=== PATIENT | female | born 1940 | race Caucasian/White ===

== ENCOUNTER 2017-02-25 02:19 | Observation (INO) | payer MEDICARE, OTHER ==
[2017-02-25] VITALS (9 sets, daily range): BP systolic 158–209; BP diastolic 74–102; PULSE 61–85; RESP 16–20; TEMP 96.7–98.9; O2SAT 95–99
[~2017-02-25] VITALS: Ht 167.6 cm; Wt 65.3 kg
[~2017-02-25 02:19] MED LIST: AMLO10 PO; CELE200 PO; PARO10S PO; PROT40TA PO; RAMI10CA PO; TAB-TAB PO
[2017-02-25] MEDS ORDERED: SODIUM CHLORID 0.9% 500 ML INJ 500 ML IV ONE ×2 (03:00→03:45)
[2017-02-25 03:24] LABS: AUTOMATED NEUTROPHIL # 9.5 TH/MM3 (1.8-7.7); BASOPHIL % 0.3 % (0.0-2.0); EOSINOPHIL % 0.1 % (0.0-4.0); HEMATOCRIT 43.4 % (35.0-46.0); HEMO FLAGS DIFF FINAL; LYMPH % 10.9 % (9.0-44.0); LYMPHOCYTE # 1.3 TH/MM3 (1.0-4.8); MEAN CELL VOLUME 88.5 FL (80.0-100.0); MEAN CORPUSCULAR HEMOGLOBIN 30.4 PG (27.0-34.0); MEAN CORPUSCULAR HGB CONC 34.3 % (32.0-36.0); NEUT % 80.7 % (16.0-70.0); PLATELET COUNT 298 TH/MM3 (150-450); WHITE BLOOD COUNT 11.8 TH/MM3 (4.0-11.0)
[2017-02-25 03:35] LABS: APTT (PATIENT) 24.3 SEC (24.3-30.1)
[2017-02-25] MEDS ORDERED: ONDANSETRON HCL 4 MG/2 ML VIAL IV PUSH ONE (03:45)
[2017-02-25] MEDS ORDERED: MORPHINE SULFATE 4 MG/ML INJ IV PUSH ONE (03:45)
--- NOTE | 2017-02-25 03:48 | RADRPT ---
EXAM DATE/TIME: 02/25/2017 03:12 [facility] COMPARISON: No previous studies available for comparison. INDICATIONS : Cough. MEDICAL HISTORY : Hypertension. Cardiovascular disease. Carcinoma, breast. SURGICAL HISTORY : None. ENCOUNTER: Initial ACUITY: 1 day PAIN SCORE: 0/10 LOCATION: Bilateral chest FINDINGS: A single view of the chest demonstrates the lungs to be symmetrically aerated without evidence of mas s, infiltrate or effusion. The cardiomediastinal contours are unremarkable. Osseous structures are intact. CONCLUSION: 1. No acute cardiopulmonary disease. Germain Zelaya MD on February 25, 2017 at 3:47 Board Certified Radiologist. This report was verified electronically.
--- NOTE | 2017-02-25 03:55 | RADRPT ---
EXAM DATE/TIME: 02/25/2017 03:06 [facility] COMPARISON: No previous studies available for comparison. INDICATIONS : Hematuria. ORAL CONTRAST: No oral contrast ingested. RADIATION DOSE: 8.50 CTDIvol (mGy) MEDICAL HISTORY : Cardiovascular disease. Hypertension. Carcinoma, breast.GERD SURGICAL HISTORY : Cholecystectomy. Hysterectomy. ENCOUNTER: Initial ACUITY: 1 day PAIN SCALE: 7/10 LOCATION: medial abdomen TECHNIQUE: Volumetric scanning of the abdomen and pelvis was performed. Using automated exposure control and ad justment of the mA and/or kV according to patient size, radiation dose was kept as low as reasonably achievable to obtain optimal diagnostic quality images. FINDINGS: Examination of the lung bases demonstrates no abnormality. No pleural fluid is identified. No pulmona ry nodules are present. The liver and spleen are normal in size and no focal defects are identified. The gallbladder is absent. The pancreas demonstrates normal contour without evidence of mass or ducta l dilatation. The adrenal glands are unremarkable. The right kidney is unremarkable. There is a 2 cm solid mass in the left kidney. Malignancy is not excluded. MRI with contrast is recommended for furth er evaluation if clinically indicated. No abnormally enlarged lymph nodes are identified. Examination of the pelvis demonstrates no evidence of free fluid or pelvic mass. No abnormally enlarg ed inguinal or retroperitoneal lymph nodes are present. The bladder is unremarkable. There is diverti culosis without evidence of diverticulitis. CONCLUSION: 1. 2 cm solid left renal mass. Malignancy is not excluded. MRI with contrast is recommended for furth er evaluation if clinically indicated. 2. Diverticulosis without evidence of diverticulitis. Germain Zelaya MD on February 25, 2017 at 3:48 Board Certified Radiologist. This report was verified electronically.
[2017-02-25 03:57] LABS: ALT (GPT) 21 U/L (10-53); ANION GAP 8 MEQ/L (5-15); AST (GOT) 17 U/L (15-37); BICARBONATE 25.6 MEQ/L (21.0-32.0); BLOOD UREA NITROGEN 20 MG/DL (7-18); CHLORIDE 103 MEQ/L (98-107); GLOMERULAR FILTRATION RATE 44 ML/MIN (>89); MAGNESIUM 2.4 MG/DL (1.5-2.5); POTASSIUM 3.7 MEQ/L (3.5-5.1); SODIUM (NA) 137 MEQ/L (136-145)
[2017-02-25 04:00] LABS: ALKALINE PHOSPHATASE 88 U/L (45-117); TOTAL BILIRUBIN ADULT 1.3 MG/DL (0.2-1.0)
--- NOTE | 2017-02-25 04:57 | PD ---
HPI Chief Complaint: GI Complaint Time Seen by Provider: 02:57 Travel History International Travel<30 days: No Contact w/Intl Traveler<30days: No Traveled to known affect area: No History of Present Illness HPI The patient is a 76 year old female who presents to the [facility] emergency department with a history of after having lunch at 2 PM yesterday having onset of nausea and vomiting. She reports that she's had at least 10 episodes of vomiting. She reports that she then began to have abdominal cramping. She reports that she has a history of constipation and felt like she needed to move her bowels. She reports that she had hard stools initially 3 times. She reports that the moving her bowels cause rectal discomfort. She then began to have rectal bleeding, bloody stools 3. She reports that it appears to be approximately a quarter cup of blood each time. She reports having a history of hemorrhoids. She last had a colonoscopy approximately 8 years ago and this was reportedly unremarkable. She does report having a prior history of peptic ulcer disease that is remote. She denies having any black or tarry stools prior to this. She denies having any chest pain, chest pressure, or shortness of breath. She denies having any lightheaded sensation. She reports having generalized abdominal discomfort associated with this. On review of systems, the patient denies any recent fevers cough, congestion, neck pain, urinary symptoms, or neurologic symptoms. The patient does however report for the last 2-3 weeks she's had bilateral flank pain. The patient incidentally also reports having a cyst on one of her kidneys. [facility] Past Medical History Narrative Medical The patient's past medical history is significant for hypertension, breast carcinoma status post resection and radiation therapy, acid reflux, history of depression, history of peptic ulcer disease, history of arthritis Arthritis: Yes Asthma: No Depression: Yes Heart Rhythm Problems: No Cancer: Yes (BREAST) Cardiovascular Problems: Yes High Cholesterol: Yes Chest Pain: No Congestive Heart Failure: No COPD: No Cerebrovascular Accident: No Diabetes: No Diminished Hearing: No Gastrointestinal Disorders: Yes GERD: Yes Glaucoma: No Genitourinary: Yes Headaches: No Hepatitis: No Hiatal Hernia: Yes Hypertension: Yes Kidney Stones: No Musculoskeletal: Yes (PARTIAL KNEE REPLACE 07/2009) Neurologic: No Reproductive: No Respiratory: Yes Migraines: No Myocardial Infarction: No Radiation Therapy: Yes (1998, 2000) Renal Failure: No Seizures: No Sleep Apnea: No Thyroid Disease: No Ulcer: No Tetanus Vaccination: < 5 Years Influenza Vaccination: Yes ?: Not Menopausal: Yes Past Surgical History Narrative Surgical The patient's past surgical history is significant for a lumpectomy of the breast 3, history of a hysterectomy, cholecystectomy, history of colonoscopy, knee replacement. Abdominal Surgery: No Appendectomy: No Cardiac Surgery: No Cholecystectomy: Yes Ear Surgery: No Endocrine Surgery: No Eye Surgery: No Genitourinary Surgery: No Gynecologic Surgery: Yes Hysterectomy: Yes (partial) Oral Surgery: No Pacemaker: No Thoracic Surgery: No Other Surgery: Yes (breast lumpectomy x3) Social History Alcohol Use: No Tobacco Use: No Substance Use: No Allergies-Medications (Allergen,Severity, Reaction): Coded Allergies: No Known Allergies (Verified , 01/18/15) Reported Meds & Prescriptions Reported Meds & Active Scripts Active Reported Simvastatin 20 Mg Tab 20 Mg PO DAILY Losartan (Losartan Potassium) 50 Mg Tab 50 Mg PO BID Pantoprazole (Pantoprazole Sodium) 40 Mg Tab 40 Mg PO BID Paroxetine (Paroxetine HCl) 40 Mg Tab 40 Mg PO DAILY Amlodipine (Amlodipine Besylate) 10 Mg Tab 10 Mg PO DAILY Review of Systems Except as stated in HPI: all other systems reviewed are Neg General / Constitutional: No: Fever Eyes: No: Visual changes HENT: No: Headaches Cardiovascular: No: Chest Pain or Discomfort Respiratory: No: Shortness of Breath Gastrointestinal: Positive: Nausea, Vomiting, Abdominal Pain, Hematochezia, Constipation, Changes in Bowel Habits, No: Hematemesis, Indigestion, Dysphagia , Loss of Appetite Genitourinary: No: Dysuria Musculoskeletal: No: Pain Skin: No Rash Neurologic: No: Weakness Psychiatric: No: Depression Endocrine: No: Polydipsia Hematologic/Lymphatic: No: Easy Bruising Physical Exam Narrative General: The patient is a well-developed well-nourished female in no acute distress. Head and Neck exam: Head is normocephalic atraumatic. Eyes: EOMI, pupils are equal round and reactive to light. Nose: Midline septum with pink mucous membranes Mouth: Dentition unremarkable. Moist mucus membranes. Posterior oropharynx is not erythematous. No tonsillar hypertrophy. Uvula midline. Airway patent. Neck: No palpable lymphadenopathy. No nuchal rigidity. No thyromegaly. Cardiovascular: Regular rate and rhythm without murmurs, gallops, or rubs. Lungs: Clear to auscultation bilaterally. No wheezes, rhonchi, or rales. Abdomen: Soft, with generalized discomfort on deep palpation. No focal tenderness. No guarding, rebound, or rigidity. Negative Sebastian sign. No tenderness on palpation specifically over McBurney's point. Extremities: No clubbing, cyanosis, or edema. 2+ pulses in all 4 extremities. Back: No spinous process tenderness to palpation. Bilateral CVA tenderness. Neurologic Exam: Grossly nonfocal. Skin Exam: No rash noted. Intact skin that is warm and dry. RECTAL EXAM: The patient has a noninflamed hemorrhoid noted on examination that does not appear to have any evidence of bleeding, no anal fissures noted. No rectal pain or masses on palpation or internal exam. The patient has bloody mucus noted that is Hemoccult positive. Data Data Last Documented VS Vital Signs Date Time Temp Pulse Resp B/P Pulse Ox O2 Delivery O2 Flow Rate FiO2 02/25/17 03:02 98.5 62 18 191/84 99 Room Air Orders Electrocardiogram (02/25/17 02:57) Complete Blood Count With Diff (02/25/17 02:57) Comprehensive Metabolic Panel (02/25/17 02:57) Prothrombin Time / Inr (Pt) (02/25/17 02:57) Act Partial Throm Time (Ptt) (02/25/17 02:57) C-Reactive Protein (Crp) (02/25/17 02:57) Urinalysis - C+S If Indicated (02/25/17 02:57) Magnesium (Mg) (02/25/17 02:57) Chest, Single Ap (02/25/17 02:57) Ct Abd/Pel W/O Iv Contrast (02/25/17 02:57) Iv Access Insert/Monitor (02/25/17 02:57) Ecg Monitoring (02/25/17 02:57) Oximetry (02/25/17 02:57) Lactic Acid (02/25/17 02:57) Sodium Chlorid 0.9% 500 Ml Inj (Ns 500 M (02/25/17 03:00) Morphine Inj (Morphine Inj) (02/25/17 03:45) Ondansetron Inj (Zofran Inj) (02/25/17 03:45) Sodium Chlorid 0.9% 500 Ml Inj (Ns 500 M (02/25/17 03:45) Admit Order (Ed Use Only) (02/25/17 05:22) Labs Laboratory Tests Test 02/25/17 03:12 White Blood Count 11.8 TH/MM3 Red Blood Count 4.90 MIL/MM3 Hemoglobin 14.9 GM/DL Hematocrit 43.4 % Mean Corpuscular Volume 88.5 FL Mean Corpuscular Hemoglobin 30.4 PG Mean Corpuscular Hemoglobin 34.3 % Concent Red Cell Distribution Width 13.0 % Platelet Count 298 TH/MM3 Mean Platelet Volume 7.7 FL Neutrophils (%) (Auto) 80.7 % Lymphocytes (%) (Auto) 10.9 % Monocytes (%) (Auto) 8.0 % Eosinophils (%) (Auto) 0.1 % Basophils (%) (Auto) 0.3 % Neutrophils # (Auto) 9.5 TH/MM3 Lymphocytes # (Auto) 1.3 TH/MM3 Monocytes # (Auto) 0.9 TH/MM3 Eosinophils # (Auto) 0.0 TH/MM3 Basophils # (Auto) 0.0 TH/MM3 CBC Comment DIFF FINAL Differential Comment Prothrombin Time 11.0 SEC Prothromb Time International 1.0 RATIO Ratio Activated Partial 24.3 SEC Thromboplast Time Sodium Level 137 MEQ/L Potassium Level 3.7 MEQ/L Chloride Level 103 MEQ/L Carbon Dioxide Level 25.6 MEQ/L Anion Gap 8 MEQ/L Blood Urea Nitrogen 20 MG/DL Creatinine 1.19 MG/DL Estimat Glomerular Filtration 44 ML/MIN Rate Random Glucose 134 MG/DL Lactic Acid Level 1.8 mmol/L Calcium Level 10.1 MG/DL Magnesium Level 2.4 MG/DL Total Bilirubin 1.3 MG/DL Aspartate Amino Transf 17 U/L (AST/SGOT) Alanine Aminotransferase 21 U/L (ALT/SGPT) Alkaline Phosphatase 88 U/L C-Reactive Protein LESS THAN 0.29 MG/DL Total Protein 7.1 GM/DL Albumin 4.0 GM/DL MDM Medical Decision Making Medical Screen Exam Complete: Yes Emergency Medical Condition: Yes Medical Record Reviewed: Yes Interpretation(s) Last Impressions Chest X-Ray 02/25/17 7237 Signed Impressions: Service Date/Time: Saturday, February 25, 2017 03:12 - CONCLUSION: 1. No acute cardiopulmonary disease. Germain Zelaya MD Abdomen/Pelvis CT 02/25/17256 Signed Impressions: Service Date/Time: Saturday, February 25, 2017 03:06 - CONCLUSION: 1. 2 cm solid left renal mass. Malignancy is not excluded. MRI with contrast is recommended for further evaluation if clinically indicated. 2. Diverticulosis without evidence of diverticulitis. Germain Zelaya MD Differential Diagnosis Last Impressions Chest X-Ray 02/25/17256 Signed Impressions: Service Date/Time: Saturday, February 25, 2017 03:12 - CONCLUSION: 1. No acute cardiopulmonary disease. Germain Zelaya MD Abdomen/Pelvis CT 02/25/17256 Signed Impressions: Service Date/Time: Saturday, February 25, 2017 03:06 - CONCLUSION: 1. 2 cm solid left renal mass. Malignancy is not excluded. MRI with contrast is recommended for further evaluation if clinically indicated. 2. Diverticulosis without evidence of diverticulitis. Germain Zelaya MD Narrative Course During the course of the patients emergency department visit, the patients history, examination, and differential diagnosis were reviewed with the patient. The patient had IV access obtained and blood work sent for analysis. The patient was placed on a box sealing machine feeder with oximetry and blood pressure monitoring. A CT scan of the abdomen and pelvis was ordered. The patient was initially provided normal saline a 500 mL bolus 1, Zofran 4 g IV, morphine 2 mg IV The patients laboratory studies were reviewed and remarkable for a white count 11.8, hemoglobin 14.9, platelets 298 with 80.7 neutrophils, CMP is remarkable for a BUN of 20, creatinine 1.19, Alex 134, lactic acid 1.8, total bilirubin 1.3, C-reactive protein less than 0.29, albumin 4.0, PT 11, INR 1.0, PTT 24.3 Radiology studies were reviewed and remarkable for a chest x-ray that shows no acute abnormality. CT scan of the abdomen and pelvis that shows 2 cm solid left renal mass, malignancy cannot be excluded, MRI with contrast is recommended for further evaluation if clinically indicated, diverticulosis without evidence of diverticulitis. These results were discussed with the patient. The patient will be given an outpatient lab slip for an MRI with contrast to further evaluate this area. Given the patient's bright red blood noted per rectum on rectal examination and reported significant amount of bleeding each time that this is occurred for the last 3 episodes of moving her bowels with approximately a quarter cup of blood with each movement, the patient will be admitted for observation and monitoring of her hemoglobin. The patients results were discussed with the patient, including the plan of care. I explained that further testing and/ or monitoring is indicated based on the patients history, examination, and/ or laboratory findings. Therefore, I recommended admission for additional evaluation. The patient expressed understanding and was agreeable with this plan. The patient was admitted to the hospital in stable condition and [facility] Point of Care Internal Pos. & Neg. Controls: Passed Fecal Specimen Occult Blood: Positive Physician Communication Physician Communication The patient's case was discussed with Dr. Garcia who did agree to admit the patient for further evaluation and treatment at this time. Diagnosis Primary Impression: Abdominal pain Qualified Code: R10.84 - Generalized abdominal pain Additional Impressions: Bright red blood per rectum Vomiting Qualified Code: R11.2 - Non-intractable vomiting with nausea, unspecified vomiting type Admitting Information Admitting Physician Requests: Admit Altagracia Juan MD February 25, 2017 04:57
[2017-02-25] MEDS ORDERED: NALOXONE HCL 0.4 MG/ML AMP IV PRN (06:00)
[2017-02-25] MEDS ORDERED: SODIUM CHLORIDE 0.9% FLUSH 10 ML FLUSH IV FLUSH PRN (06:00)
--- NOTE | 2017-02-25 06:18 | HHI.HP ---
HPI Service [place] [facility] Primary Care Physician Gonsalo (Rober) MD Osei Admission Diagnosis GI Bleed Diagnoses: Chief Complaint: Nausea, vomiting, bloody stool Travel History International Travel<30 Days: No Contact w/Intl Traveler <30 Da: No Traveled to Known Affected Are: No History of Present Illness History from patient, her at the bedside, your physician communication, and review of medical records. Patient reported that she started having abdominal cramping pains and nausea and vomiting starting around 3 PM yesterday. She stated that she vomited about 5 times. Reports her vomitus was yellow in color. Associated with diffuse abdominal cramping. Then starting around 6 PM or so, she was also having bowel movements about 5 times. She stated initially the bowel movement was hard because she was constipated. Then it became diarrhea and by the end, it was bright red blood. She reports of history of external hemorrhoids. She reports that the above episodes of bleeding is associated with severe dizziness and weakness. However denies syncope or falls. Denies chest pains or shortness of breath. Patient denies being on blood thinners. She takes medications for acid reflux though. She initially denies taking NSAIDs. She reports she takes Osteo Bi-Flex. Her med reconciliation does include celecoxib Patient also reports a prior history of GI ulcers. She reports her last EGD and colonoscopy was more than 5 years ago. She cannot remember the name of the doctor. Apart from the above, patient denies any recent fevers/urinary burning or pain on urination. denies any black color stools or coffee-ground like vomiting. Denies any other constitutional symptoms. Review of Systems Except as stated in HPI: all other systems reviewed are Neg Past Family Social History Past Medical History Hypertension Kidney infections as a child Patient reported to ER physician that she may have had a kidney's cyst as well. History of breast cancer 3status post bilateral lumpectomy, radiation therapy. This was between 1999 to 2003. Chronic kidney diseaseper prior labs Past Surgical History lumpectomy cholecystectomy hysterectomy lump from neck shoulder rotator cuff sx left thumb sx Reported Medications Patient's medications listed on EMRreviewed. Allergies: Coded Allergies: No Known Allergies (Verified , 01/18/15) Family History heart problems kidney problems brain tumor in mother Social History Denies smoking/alcohol abuse/drug abuse. Physical Exam Vital Signs Vital Signs Date Time Temp Pulse Resp B/P Pulse Ox O2 Delivery O2 Flow Rate FiO2 02/25/17 03:02 98.5 62 18 191/84 99 Room Air 02/25/17 02:21 98.9 76 18 209/87 95 Room Air Physical Exam GENERAL: This is a well-nourished, well-developed patient, in no apparent distress. But looks to be weak, in pain from abdomen. SKIN: No rashes, ecchymoses or lesions. Cool and dry. HEAD: Atraumatic. Normocephalic. No temporal or scalp tenderness. EYES: No scleral icterus. No injection or drainage. ENT: Nose without bleeding, purulent drainage or septal hematoma. Airway patent. NECK: Trachea midline. No JVD. Supple, nontender, no meningeal signs. CARDIOVASCULAR: Regular rate and rhythm without murmurs, gallops, or rubs. RESPIRATORY: Clear to auscultation. Breath sounds equal bilaterally. No wheezes , rales, or rhonchi. ABDOMEN: soft, non tender, no rebound MUSCULOSKELETAL: Extremities without clubbing, cyanosis, or edema. No calf tenderness. NEUROLOGICAL: Awake and alert. Motor and sensory grossly within normal limits.Normal speech. Laboratory Laboratory Tests Test 02/25/17 03:12 White Blood Count 11.8 Red Blood Count 4.90 Hemoglobin 14.9 Hematocrit 43.4 Mean Corpuscular Volume 88.5 Mean Corpuscular Hemoglobin 30.4 Mean Corpuscular Hemoglobin 34.3 Concent Red Cell Distribution Width 13.0 Platelet Count 298 Mean Platelet Volume 7.7 Neutrophils (%) (Auto) 80.7 Lymphocytes (%) (Auto) 10.9 Monocytes (%) (Auto) 8.0 Eosinophils (%) (Auto) 0.1 Basophils (%) (Auto) 0.3 Neutrophils # (Auto) 9.5 Lymphocytes # (Auto) 1.3 Monocytes # (Auto) 0.9 Eosinophils # (Auto) 0.0 Basophils # (Auto) 0.0 CBC Comment DIFF FINAL Differential Comment Prothrombin Time 11.0 Prothromb Time International 1.0 Ratio Activated Partial 24.3 Thromboplast Time Sodium Level 137 Potassium Level 3.7 Chloride Level 103 Carbon Dioxide Level 25.6 Anion Gap 8 Blood Urea Nitrogen 20 Creatinine 1.19 Estimat Glomerular Filtration 44 Rate Random Glucose 134 Lactic Acid Level 1.8 Calcium Level 10.1 Magnesium Level 2.4 Total Bilirubin 1.3 Aspartate Amino Transf 17 (AST/SGOT) Alanine Aminotransferase 21 (ALT/SGPT) Alkaline Phosphatase 88 C-Reactive Protein LESS THAN 0.29 Total Protein 7.1 Albumin 4.0 Result Diagram: 02/25/1731102/25/17311 Imaging Last 48 hours Impressions Chest X-Ray 02/25/17256 Signed Impressions: Service Date/Time: Saturday, February 25, 2017 03:12 - CONCLUSION: 1. No acute cardiopulmonary disease. Germain Zelaya MD Abdomen/Pelvis CT 02/25/17256 Signed Impressions: Service Date/Time: Saturday, February 25, 2017 03:06 - CONCLUSION: 1. 2 cm solid left renal mass. Malignancy is not excluded. MRI with contrast is recommended for further evaluation if clinically indicated. 2. Diverticulosis without evidence of diverticulitis. Germain Zelaya MD Assessment and Plan Problem List: (1) Abdominal pain ICD Code: R10.9 Status: Acute (2) Bright red blood per rectum ICD Code: K62.5 Status: Acute (3) Vomiting ICD Code: R11.10 Status: Acute Assessment and Plan Impression: Lower GI bleedhemorrhoidal bleed versus diverticular bleed. Nausea/vomitingpossible gastroenteritis. Leukocytosis with left shift Incidental finding of solid renal massoutpatient MRI imagings to follow-up Hypertension Kidney infections as a child Patient reported to ER physician that she may have had a kidney's cyst as well. History of breast cancer 3status post bilateral lumpectomy, radiation therapy. This was between 1999 to 2003. Chronic kidney diseaseper prior labs Plan: Serial hemoglobin hematocrit. We'll start patient on pantoprazole IV drip since patient is having abdominal pain. Lactic acid is normal 1.8. Not clinically suspecting ischemic bowel. We'll hydrate patient. I believe that her leukocytosis is mostly from dehydration. Will repeat CBC. GI consult. Resume home meds apart from NSAIDs. DVT prophylaxiswith SCD. GI prophylaxison pantoprazole. Discussed Condition With patient, ER MD , pt's Problem Qualifiers (1) Abdominal pain: Qualified Code: R10.84 - Generalized abdominal pain (2) Vomiting: Qualified Code: R11.2 - Non-intractable vomiting with nausea, unspecified vomiting type Mili Garcia MD February 25, 2017 06:18
[2017-02-25] MEDS ORDERED: MORPHINE SULFATE 4 MG/ML INJ IV PUSH PRN (06:30)
[2017-02-25] MEDS ORDERED: ENALAPRILAT 2.5 MG/2 ML VIAL IV PUSH PRN (06:45)
[2017-02-25 06:54] LABS: BLOOD, URINE NEG (NEG); COMMENT (UR) CULT NOT INDICATED; CULTURE IF INDICATED CULT NOT INDICATED; GLUCOSE,URINE NEG (NEG); KETONE, URINE NEG (NEG); MUCUS URINE FEW /lpf (OCC); NITRITE,URINE NEG (NEG); URINE COLOR LIGHT-YELLOW (YELLW/STRAW)
[2017-02-25] MEDS: PANTOPRAZOLE INJ 80 MG in SODIUM CHLORIDE 0.9% INJ 100 ML IV SCH ×2 (07:19→17:52)
[2017-02-25] MEDS ORDERED: PANTOPRAZOLE INJ 80 MG in SODIUM CHLORIDE 0.9% INJ 35 ML IV ONE (08:00)
--- NOTE | 2017-02-25 09:15 | PD.CONS ---
HPI History of Present Illness This is a 76 year old female who presented to the ER for evaluation of rectal bleeding that started yesterday afternoon around 2-3pm. She had Urdu food yesterday afternoon and as soon as she got home, she started having intractable nausea and vomiting. This consisted of undigested food and bile, but no blood. She reports that she vomited about 10 times yesterday. She did not move her bowels the day before and felt constipated and was straining to move her bowels. She finally passed a hard stool and she states there was no bleeding initially. The vomiting subsided and passed several bowel movements. Yesterday evening around 5-6pm, she started having rectal bleeding consisting of a moderate amount bright red blood per rectum. She had about 3-4 episodes. The last episode was around 2am. She has had lower abdominal cramping since her symptoms began. She last had an EGD/Colonoscopy about [address] Mcguire. She had stomach ulcers, but she does not recall if she has had any bleeding. She does not take any blood thinners or NSAIDs. Celebrex is listed on her home meds, but she states that she has been off of this x 2 years. No ETOH use. No family hx of esophageal, gastric, or colorectal cancer. (Jane Kaur) PFSH Past Medical History Arthritis Hypertension Peptic ulcer disease GERD History of breast cancer 3status post bilateral lumpectomy, radiation therapy. This was between 1999 to 2003. Chronic kidney diseaseper prior labs Past Surgical History Lumpectomy Cholecystectomy Hysterectomy Lump from neck Shoulder rotator cuff sx Left thumb sx EGD/Colonoscopy (Jane Kaur) Coded Allergies: No Known Allergies (Verified , 01/18/15) Medications Allergies Coded Allergies Type Severity Reaction Last Updated Verified No Known Allergies 01/18/15 Yes Active Scripts Medications Dose Route/Sig Days Date Category Multivitamin (Multivitamins) 1 Tab Tab 1 Tab PO DAILY 09/11/10 Reported Celebrex (Celecoxib) 200 Mg Cap 200 Mg PO DAILY 09/11/10 Reported Protonix (Pantoprazole Sodium) 40 Mg Tabdr 40 Mg PO DAILY 09/11/10 Reported Paxil (Paroxetine HCl) 10 Mg/5 Ml [place] 40 Mg PO DAILY 09/11/10 Reported Altace (Ramipril) 10 Mg Cap 10 Mg PO BID 09/11/10 Reported Norvasc (Amlodipine Besylate) 10 Mg Tab 10 Mg PO DAILY 09/11/10 Reported Family History Mother had a brain tumor Father lived to be 95, from old age. Social History Denies smoking/alcohol abuse/drug abuse. (Jane Kaurjeremiah LAN) Review of Systems Constitutional: COMPLAINS OF: Fatigue, DENIES: Weight loss, Change in appetite Respiratory: DENIES: Cough Cardiovascular: DENIES: Chest pain Gastrointestinal: COMPLAINS OF: Abdominal pain, Bloody stools (bright red blood per rectum), Constipation, Nausea, Vomiting, Heartburn, DENIES: Black stools Musculoskeletal: COMPLAINS OF: Joint pain Integumentary: DENIES: Rash Hematologic/lymphatic: DENIES: Bruising Neurologic: DENIES: Headache Psychiatric: DENIES: Confusion (Jane Kaur Sandra LAN) GI Exam Vitals I&O Vital Signs Date Time Temp Pulse Resp B/P Pulse Ox O2 Delivery O2 Flow Rate FiO2 02/25/17 07:26 71 18 158/84 97 Room Air 02/25/17 03:02 98.5 62 18 191/84 99 Room Air 02/25/17 02:21 98.9 76 18 209/87 95 Room Air Imaging Last Impressions Chest X-Ray 02/25/17256 Signed Impressions: Service Date/Time: Saturday, February 25, 2017 03:12 - CONCLUSION: 1. No acute cardiopulmonary disease. Germain Zelaya MD Abdomen/Pelvis CT 02/25/17256 Signed Impressions: Service Date/Time: Saturday, February 25, 2017 03:06 - CONCLUSION: 1. 2 cm solid left renal mass. Malignancy is not excluded. MRI with contrast is recommended for further evaluation if clinically indicated. 2. Diverticulosis without evidence of diverticulitis. Germain Zelaya MD Laboratory Test 02/25/17 02/25/17 02/25/17 03:12 06:10 07:20 White Blood Count 11.8 TH/MM3 Red Blood Count 4.90 MIL/MM3 Hemoglobin 14.9 GM/DL Hematocrit 43.4 % Mean Corpuscular Volume 88.5 FL Mean Corpuscular Hemoglobin 30.4 PG Mean Corpuscular Hemoglobin 34.3 % Concent Red Cell Distribution Width 13.0 % Platelet Count 298 TH/MM3 Mean Platelet Volume 7.7 FL Neutrophils (%) (Auto) 80.7 % Lymphocytes (%) (Auto) 10.9 % Monocytes (%) (Auto) 8.0 % Eosinophils (%) (Auto) 0.1 % Basophils (%) (Auto) 0.3 % Neutrophils # (Auto) 9.5 TH/MM3 Lymphocytes # (Auto) 1.3 TH/MM3 Monocytes # (Auto) 0.9 TH/MM3 Eosinophils # (Auto) 0.0 TH/MM3 Basophils # (Auto) 0.0 TH/MM3 CBC Comment DIFF FINAL Differential Comment Prothrombin Time 11.0 SEC Prothromb Time International 1.0 RATIO Ratio Activated Partial 24.3 SEC Thromboplast Time Sodium Level 137 MEQ/L Potassium Level 3.7 MEQ/L Chloride Level 103 MEQ/L Carbon Dioxide Level 25.6 MEQ/L Anion Gap 8 MEQ/L Blood Urea Nitrogen 20 MG/DL Creatinine 1.19 MG/DL Estimat Glomerular Filtration 44 ML/MIN Rate Random Glucose 134 MG/DL Lactic Acid Level 1.8 mmol/L Calcium Level 10.1 MG/DL Magnesium Level 2.4 MG/DL Total Bilirubin 1.3 MG/DL Aspartate Amino Transf 17 U/L (AST/SGOT) Alanine Aminotransferase 21 U/L (ALT/SGPT) Alkaline Phosphatase 88 U/L C-Reactive Protein LESS THAN 0.29 MG/DL Total Protein 7.1 GM/DL Albumin 4.0 GM/DL Urine Color LIGHT-YELLOW Urine Turbidity CLEAR Urine pH 7.0 Urine Specific [place] 1.007 Urine Protein NEG mg/dL Urine Glucose (UA) NEG mg/dL Urine Ketones NEG mg/dL Urine Occult Blood NEG Urine Nitrite NEG Urine Bilirubin NEG Urine Urobilinogen LESS THAN 2.0 MG/DL Urine Leukocyte Esterase NEG Urine RBC 1 /hpf Urine WBC LESS THAN 1 /hpf Urine Mucus FEW /lpf Microscopic Urinalysis Comment CULT NOT INDICATED Blood Type O POSITIVE Antibody Screen NEGATIVE Physical Examination HEENT: Normocephalic; atraumatic; no jaundice. CHEST: CTA CARDIAC: RRR. ABDOMEN: Soft, nondistended, mild lower abdominal tenderness, no hepatosplenomegaly; bowel sounds are present in all four quadrants. EXTREMITIES: No clubbing, cyanosis, or edema. SKIN: Normal; no rash; no jaundice. LETTER SORTING MACHINE OPERATOR: No focal deficits; alert and oriented times three. (Jane Kaur) Assessment and Plan Plan ASSESSMENT: - Rectal bleeding/BRBPR. Last EGD/Colonoscopy [address] Mcguire. Started having nausea/vomiting, followed by straining to move her bowels. She later started having moderate amount of BRBPR, about 3-4 episodes with the last episode around 2am. Diverticulosis noted on CT scan. - Nausea, Vomiting. Remote hx of PUD. PPI. Started after eating out at a [employer]. - Abdominal pain. Abdomen/Pelvis CT (02/25/17)----> 1. 2 cm solid left renal mass. Malignancy is not excluded. MRI with contrast is recommended for further evaluation if clinically indicated. 2. Diverticulosis without evidence of diverticulitis. - GERD. PPI - Abnormal imaging with kidney PLAN: - Plan for egd/colonoscopy in am - Obtain consents - Clear liquids - NPO after MN - Golytely prep - Monitor HH - Transfuse as necessary - Protonix - Supportive care - Further recommendations to follow based on results of above - PT seen and examined by Dr. Villaseñor and myself and this note is written on his behalf (Jane Kaur) Physician Comments Seen and examined with RIKY, No active bleeding at this time. EGD/Colonoscopy discussed with the pt. and planned for tomorrow. Monitor labs. Clear liquid diet. Will follow, thank you (Bharathi Villaseñor MD) Jane Kaur February 25, 2017 09:15 Bharathi Villaseñor MD February 25, 2017 11:58
[2017-02-25] MEDS: SODIUM CHLORIDE 0.9% FLUSH 10 ML FLUSH IV FLUSH SCH ×2 (10:00→20:14)
--- NOTE | 2017-02-25 11:53 | EKG ---
Date Performed: 02/25/2017 Time Performed: 03:31:08 PTAGE: 76 years EKG: SINUS BRADYCARDIA NONSPECIFIC INTRAVENTRICULAR CONDUCTION DELAY BORDERLINE ECG PREVIOUS TRACING : 09/12/2010 11.06 No significant change from previous tracing noted. DOCTOR: Johny Zeng Interpretating Date/Time 02/25/2017 11:50:39
[2017-02-25 12:22] LABS: REVIEW FLAG FINAL
[2017-02-25] MEDS ORDERED: PARO40TA2 PO (13:29)
[2017-02-25] MEDS ORDERED: LOSA50TA PO (13:29)
[2017-02-25] MEDS ORDERED: SIMV20TA PO (13:29)
[2017-02-25] MEDS ORDERED: AMLO10TA2 PO (13:29)
[2017-02-25] MEDS ORDERED: PANT40TA3 PO (13:29)
[2017-02-25] MEDS: LOSARTAN 50 MG TAB PO SCH ×2 (15:16→20:15)
[2017-02-25] MEDS ORDERED: PEG (High)/E-LYTE SOLN 4000 ML BTL PO ONE (16:00)
[2017-02-25 16:27] LABS: HEMATOCRIT 40.2 % (35.0-46.0); REVIEW FLAG FINAL
[2017-02-25] MEDS ORDERED: PANTOPRAZOLE SOD 40 MG DELAYED RELEASE TAB PO SCH (21:00)
[2017-02-25 22:03] LABS: REVIEW FLAG FINAL
[2017-02-26] VITALS (13 sets, daily range): BP systolic 124–164; BP diastolic 59–75; PULSE 65–79; RESP 16–18; TEMP 97.9–98.7; O2SAT 93–97
[2017-02-26] MEDS: PANTOPRAZOLE INJ 80 MG in SODIUM CHLORIDE 0.9% INJ 100 ML IV SCH (04:49)
[2017-02-26 05:53] LABS: AUTOMATED NEUTROPHIL # 8.6 TH/MM3 (1.8-7.7); BASOPHIL # 0.1 TH/MM3 (0-0.2); BASOPHIL % 0.7 % (0.0-2.0); EOSINOPHIL # 0.1 TH/MM3 (0-0.4); EOSINOPHIL % 0.9 % (0.0-4.0); HEMO FLAGS DIFF FINAL; LYMPHOCYTE # 1.6 TH/MM3 (1.0-4.8); MEAN CELL VOLUME 89.2 FL (80.0-100.0); MEAN CORPUSCULAR HEMOGLOBIN 30.6 PG (27.0-34.0); MEAN CORPUSCULAR HGB CONC 34.3 % (32.0-36.0); MONO % 8.1 % (0.0-8.0); NEUT % 76.3 % (16.0-70.0); PLATELET COUNT 266 TH/MM3 (150-450); RED BLOOD COUNT 4.26 MIL/MM3 (4.00-5.30); RED CELL DISTRIBUTION WIDTH 13.2 % (11.6-17.2); WHITE BLOOD COUNT 11.2 TH/MM3 (4.0-11.0)
[2017-02-26 06:05] LABS: BICARBONATE 28.1 MEQ/L (21.0-32.0); POTASSIUM 3.8 MEQ/L (3.5-5.1)
--- NOTE | 2017-02-26 07:55 | HHI.PR ---
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 also had Colonoscopy found Diverticulosis and no Diverticulitis, Circumferential Colitis was found in the Sigmoid Colon internal hemorrhoids. the patient developed Atrial Fibrillation given Cardizem and Amiodarone by Anesthesiology I started her on Metoprolol and I see gas plant specialist was consulted by Doctor Kasi. Objective Vital Signs Date Time Temp Pulse Resp B/P Pulse Ox O2 Delivery O2 Flow Rate FiO2 02/26/17 07:43 98.2 76 17 139/61 97 02/26/17 03:52 98.7 76 18 145/63 96 02/26/17 00:00 98.6 77 18 155/75 93 02/25/17 19:21 98.6 67 20 173/74 96 02/25/17 17:05 96.7 61 16 169/76 95 02/25/17 15:57 81 18 181/77 98 Room Air 02/25/17 14:00 76 18 200/80 98 Room Air 02/25/17 12:00 85 18 173/84 98 Room Air 02/25/17 10:00 80 18 175/102 98 Room Air I/O 02/25/17 02/25/17 02/25/17 02/26/17 02/26/17 02/26/17 07:00 15:00 23:00 07:00 15:00 23:00 # Bowel Movements 2 Result Diagram: 02/26/17 0427 02/26/17 0427 Imaging Last Impressions Chest X-Ray 02/25/17256 Signed Impressions: Service Date/Time: Saturday, February 25, 2017 03:12 - CONCLUSION: 1. No acute cardiopulmonary disease. Germain Zelaya MD Abdomen/Pelvis CT 02/25/17256 Signed Impressions: Service Date/Time: Saturday, February 25, 2017 03:06 - CONCLUSION: 1. 2 cm solid left renal mass. Malignancy is not excluded. MRI with contrast is recommended for further evaluation if clinically indicated. 2. Diverticulosis without evidence of diverticulitis. Germain Zelaya MD Procedures EGD and Colonoscopy Other Results Laboratory Tests Test 02/25/17 02/25/17 02/25/17 02/26/17 03:12 06:10 07:20 04:27 Prothrombin Time 11.0 SEC Prothromb Time International 1.0 RATIO Ratio Activated Partial 24.3 SEC Thromboplast Time Lactic Acid Level 1.8 mmol/L Magnesium Level 2.4 MG/DL Total Bilirubin 1.3 MG/DL Aspartate Amino Transf 17 U/L (AST/SGOT) Alanine Aminotransferase 21 U/L (ALT/SGPT) Alkaline Phosphatase 88 U/L C-Reactive Protein LESS THAN 0.29 MG/DL Total Protein 7.1 GM/DL Albumin 4.0 GM/DL Urine Color LIGHT-YELLOW Urine Turbidity CLEAR Urine pH 7.0 Urine Specific [place] 1.007 Urine Protein NEG mg/dL Urine Glucose (UA) NEG mg/dL Urine Ketones NEG mg/dL Urine Occult Blood NEG Urine Nitrite NEG Urine Bilirubin NEG Urine Urobilinogen LESS THAN 2.0 MG/DL Urine Leukocyte Esterase NEG Urine RBC 1 /hpf Urine WBC LESS THAN 1 /hpf Urine Mucus FEW /lpf Microscopic Urinalysis Comment CULT NOT INDICATED Blood Type O POSITIVE Antibody Screen NEGATIVE White Blood Count 11.2 TH/MM3 Red Blood Count 4.26 MIL/MM3 Hemoglobin 13.1 GM/DL Hematocrit 38.0 % Mean Corpuscular Volume 89.2 FL Mean Corpuscular Hemoglobin 30.6 PG Mean Corpuscular Hemoglobin 34.3 % Concent Red Cell Distribution Width 13.2 % Platelet Count 266 TH/MM3 Mean Platelet Volume 8.0 FL Neutrophils (%) (Auto) 76.3 % Lymphocytes (%) (Auto) 14.0 % Monocytes (%) (Auto) 8.1 % Eosinophils (%) (Auto) 0.9 % Basophils (%) (Auto) 0.7 % Neutrophils # (Auto) 8.6 TH/MM3 Lymphocytes # (Auto) 1.6 TH/MM3 Monocytes # (Auto) 0.9 TH/MM3 Eosinophils # (Auto) 0.1 TH/MM3 Basophils # (Auto) 0.1 TH/MM3 CBC Comment DIFF FINAL Differential Comment Sodium Level 143 MEQ/L Potassium Level 3.8 MEQ/L Chloride Level 107 MEQ/L Carbon Dioxide Level 28.1 MEQ/L Anion Gap 8 MEQ/L Blood Urea Nitrogen 16 MG/DL Creatinine 1.08 MG/DL Estimat Glomerular Filtration 49 ML/MIN Rate Random Glucose 100 MG/DL Calcium Level 9.4 MG/DL Objective Remarks GENERAL: This is a well-nourished, well-developed patient, in no apparent distress. But looks to be weak, in pain from abdomen. SKIN: No rashes, ecchymoses or lesions. Cool and dry. HEAD: Atraumatic. Normocephalic. No temporal or scalp tenderness. EYES: No scleral icterus. No injection or drainage. ENT: Nose without bleeding, purulent drainage or septal hematoma. Airway patent. NECK: Trachea midline. No JVD. Supple, nontender, no meningeal signs. CARDIOVASCULAR: Regular rate and rhythm without murmurs, gallops, or rubs. RESPIRATORY: Clear to auscultation. Breath sounds equal bilaterally. No wheezes , rales, or rhonchi. ABDOMEN: soft, non tender, no rebound MUSCULOSKELETAL: Extremities without clubbing, cyanosis, or edema. No calf tenderness. NEUROLOGICAL: Awake and alert. Motor and sensory grossly within normal limits.Normal speech. Medications and IVs Current Medications Medications (Trade) Dose Ordered Sig/[place] Route Start Time Stop Time Status Last Admin (NS Flush) 2 ml UNSCH PRN IV FLUSH 02/25/17 06:00 (NS Flush) 2 ml BID IV FLUSH 02/25/17 09:00 02/25/17 10:00 Naloxone HCl 0.4 mg 0.4 mg UNSCH PRN IV 02/25/17 06:00 (Protonix Inj/NS Inj) 100 ml @ 10 mls/hr Q10H IV 02/25/17 08:00 02/26/17 04:49 (Morphine Inj) 2 mg Q3H PRN IV PUSH 02/25/17 06:30 (Vasotec Inj) 2.5 mg Q6H PRN IV PUSH 02/25/17 06:45 (Norvasc) 10 mg DAILY PO 02/25/17 14:30 02/25/17 14:37 (Cozaar) 50 mg BID PO 02/25/17 15:00 02/25/17 20:15 (Paxil) 40 mg DAILY PO 02/26/17 09:00 (Pravachol) 40 mg DAILY PO 02/26/17 09:00 A/P Assessment and Plan (1) Abdominal pain ICD Code: R10.9 Status: Acute (2) Bright red blood per rectum ICD Code: K62.5 Status: Acute (3) Vomiting ICD Code: R11.10 Status: Acute Assessment and Plan Impression: Lower GI bleedhemorrhoidal bleed versus diverticular bleed. Nausea/vomitingpossible gastroenteritis. 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 also had Colonoscopy found Diverticulosis and no Diverticulitis, Circumferential Colitis was found in the Sigmoid Colon internal hemorrhoids. the patient developed Atrial Fibrillation given Cardizem and Amiodarone by Anesthesiology I started her on Metoprolol and I see gas plant specialist was consulted by Doctor Villaseñor. Hypertension controlled New Onset of Atrial Fibrillation status post Amiodarone and Cardizem given by Anesthesiology specialist started on Metoprolol and asked for gas plant specialist consult. patient stable, Echocardiogram. Ischemic Colitis asked by Doctor Villaseñor not to start anticoagulation in the next two days to gas plant specialist. As always a pleasure to talk about cases with Gastroenterology specialist Doctor Bharathi Villaseñor his input and recommendations highly appreciated. DVT prophylaxiswith SCD. GI prophylaxison pantoprazole. Discussed Condition With Patient, her Mr. Neil Herrera all questions answered to the best of my abilities he states he talked already to Gastroenterology specialist and gas plant specialist and plan of care was discussed with him Discharge Planning Once cleared by specialists. Shai Moffett MD February 26, 2017 07:55
[2017-02-26] MEDS ORDERED: PROPOFOL 200 MG/20 ML AMP IV ONE (09:02)
[2017-02-26] MEDS ORDERED: DO NOT ADM ANY ANTICOAGULANT DRUGS PRN (09:15)
--- NOTE | 2017-02-26 09:45 | GIPROC ---
[facility] [address] [facility]. [facility], [address] EGD PROCEDURE REPORT EXAM DATE: 02/26/2017 PATIENT NAME: Aleja Herrera MR #: [id number] BIRTHDATE: 1940 ATTENDING: Bharathi Villaseñor MD ORDER #: [id number] BRICK GRADER: Angus Cochran Schulman, Neal, and Kristi Layne STATUS: inpatient INDICATIONS: The patient is a 76 yr old female here for an EGD due to abdominal pain and hematochezia PROCEDURE PERFORMED: EGD w/ biopsy MEDICATIONS: None and Per Anesthesia. TOPICAL ANESTHETIC: CONSENT: The patient understands the risks and benefits of the procedure and understands that these risks include, but are not limited to: sedation, allergic reaction, infection, perforation and/or bleeding. Alternative means of evaluation and treatment include, among others: physical exam, x-rays, and/or surgical intervention. The patient elects to proceed with this endoscopic procedure. medical equipment was checked for proper function. Hand hygiene and appropriate measures for infection prevention was taken. After the risks, benefits and alternatives of the procedure were thoroughly explained, Informed consent was verified, confirmed and timeout was successfully executed by the treatment team. The patient was anesthetized with topical anesthesia and the EC-[id number] (Pedi C) endoscope was introduced through the mouth and advanced to the second portion of the duodenum. Retroflexed views revealed no abnormalities The gastroscope was then slowly withdrawn and removed. ESOPHAGUS: There was short segment Rogers's esophagus found in the distal esophagus. The length of circumferential Rogers's was 1cm ([place] C1). There was no nodular mucosa noted in the Rogers's segment. A biopsy was performed using cold forceps. Sample sent for histology. STOMACH: There was erythematous moderate gastritis in the gastric antrum. A biopsy was performed using cold forceps. Sample sent for histology. DUODENUM: The duodenal mucosa appeared normal. ADVERSE EVENTS: There were no complications. IMPRESSIONS: 1. There was short segment Rogers's esophagus found in the distal esophagus; biopsy was performed 2. There was erythematous gastritis in the gastric antrum; biopsy was performed 3. Normal duodenal mucosa 4. Retroflexed views revealed no abnormalities RECOMMENDATIONS: 1. Await biopsy results. Biopsy results will not be ready for 7-10 days. If you don't hear from us in two weeks, call our office for biopsy results. 2. Anti-reflux regimen 3. Continue PPI 4. Avoid NSAIDS PATIENT CONDITION: stable DISPOSITION: Inpatient REPEAT EXAM: Return 1 year EGD pending biopsy results Bharathi Villaseñor MD eSigned: Bharathi Villaseñor MD 02/26/2017 9:45 AM cc: PATIENT NAME: Aleja Herrera MR#: [id number]
--- NOTE | 2017-02-26 09:52 | GIPROC ---
[facility] [address] [facility]. [facility], [address] COLONOSCOPY PROCEDURE REPORT EXAM DATE: 02/26/2017 PATIENT NAME: Aleja Herrera MR #: [id number] BIRTHDATE: 1940 ENDOSCOPIST: Bharathi Villaseñor MD ORDER #: [id number] LOGISTICS ANALYST: Angus Cochran Stienbarger, Terrie, and Arvin Sumner STATUS: inpatient INDICATIONS: The patient is a 76 yr old female here for a colonoscopy due to abdominal pain and hematochezia PROCEDURE PERFORMED: Colonoscopy with biopsy MEDICATIONS: None and Per Anesthesia. PREP QUALITY: The [place] Bowel Prep Score was Right colon 2, Mid colon 3, and Left colon 3. Total = 8. PREP TYPE:GoLytely ESTIMATED BLOOD LOSS: None CONSENT: The patient understands the risks and benefits of the procedure and understands that these risks include, but are not limited to: sedation, allergic reaction, infection, perforation and/or bleeding. Alternative means of evaluation and treatment include, among others: physical exam, x-rays, and/or surgical intervention. The patient elects to proceed with this endoscopic procedure. medical equipment was checked for proper function. Hand hygiene and appropriate measures for infection prevention was taken. After the risks, benefits and alternatives of the procedure were thoroughly explained, Informed consent was verified, confirmed and timeout was successfully executed by the treatment team. A digital exam revealed external hemorrhoids The Pentax EC-[id number] endoscope was introduced through the anus and advanced to the cecum, which was identified by both the appendix and ileocecal valve. The instrument was then slowly withdrawn as the colon was fully examined. COLON FINDINGS: Moderate diverticulosis was noted in the sigmoid colon. A circumferential patch of colitis was found in the sigmoid colon. The mucosa was erythematous and had granularity. Multiple biopsies were performed using cold forceps. Retroflexed views revealed internal hemorrhoids and Retroflexed views revealed medium internal hemorrhoids The scope was then completely withdrawn from the patient and the procedure terminated. PROCEDURE WITHDRAWAL TIME:6minutes ADVERSE EVENTS: There were no complications. IMPRESSIONS: 1. Moderate diverticulosis was noted in the sigmoid colon 2. Circumferential colitis was found in the sigmoid colon; The mucosa was erythematous and had granularity; multiple biopsies were performed using cold forceps 3. Retroflexed views revealed internal hemorrhoids 4. Retroflexed views revealed medium internal hemorrhoids 5. Revealed external hemorrhoids RECOMMENDATIONS: 1. Await biopsy results. Biopsy results will not be ready for 7-10 days. If you don't hear from us in two weeks, call our office for results. 2. Continue surveillance 3. Yearly hemoccult 4. No seeds, nuts and popcorn in diet RECALL: Return 6 months Colonoscopy, pending biopsy results Bharathi Villaseñor MD eSigned: Bharathi Villaseñor MD 02/26/2017 9:52 AM cc: PATIENT NAME: Aleja Herrera MR#: [id number]
[2017-02-26] MEDS ORDERED: DILTIAZEM HCL 25 MG/5 ML VIAL ONE (10:09)
[2017-02-26] MEDS: DILTIAZEM HCL 25 MG/5 ML VIAL IV SCH ×4 (10:14→11:00)
--- NOTE | 2017-02-26 10:20 | EKG ---
Date Performed: 02/26/2017 Time Performed: 09:49:23 PTAGE: 76 years EKG: ATRIAL FIBRILLATION WITH RAPID VENTRICULAR RESPONSE NONSPECIFIC ST & T-WAVE ABNORMALITY ABN ORMAL RHYTHM ECG PREVIOUS TRACING : 02/25/2017 03.31 DOCTOR: Frank Allan Interpretating Date/Time 02/26/2017 10:18:31
[2017-02-26] MEDS ORDERED: AMIODARONE 150 MG/D5W 97 ML BOLUS 60 MINUTES IV ONE ×2 (10:30)
[2017-02-26] MEDS ORDERED: AMIODARONE HCL 150 MG/3 ML VIAL ONE (10:31)
[2017-02-26] MEDS: PANTOPRAZOLE SODIUM 40 MG VIAL IV PUSH SCH (12:15)
[2017-02-26] MEDS: METOPROLOL TARTRATE 25 MG TAB PO SCH ×2 (12:45→21:36)
--- NOTE | 2017-02-26 14:22 | MB ---
cc: PETRA WAY M.D. DATE OF CONSULTATION: 02/26/2017 REASON FOR CONSULTATION Atrial fibrillation. HISTORY OF PRESENT ILLNESS The patient is a 76-year-old white female with a history of breast cancer, hypertension, rheumatoid arthritis, gastroesophageal reflux disease, who presented to the hospital initially with multiple episodes of nausea/vomiting as well as bright red blood per rectum. She underwent endoscopy today showing Rogers's esophagus, gastritis, sigmoid colitis and hemorrhoids. Today she developed an episode of atrial fibrillation with a rapid ventricular response. The patient denies palpitations at the time although she did feel dyspnea. She denies any other episodes of dyspnea. She also denies chest pain, syncope, near-syncope, pedal edema, paroxysmal nocturnal dyspnea. At times she does feel mildly lightheaded for a few seconds usually upon standing. PAST MEDICAL HISTORY 1. Left breast cancer 1998, status post lumpectomy and radiation therapy; right breast cancer 2000 status post lumpectomy. She also underwent another right-sided lumpectomy 2002 which showed benign pathology. 2. Hypertension. 3. Gastroesophageal reflux disease. 4. Hyperlipidemia. 5. Rheumatoid arthritis. 6. Normal cardiac catheterization 09/13/2010. 7. Rogers's esophagus, gastritis, sigmoid colitis, hemorrhoids demonstrated by endoscopy today. PAST SURGICAL HISTORY 1. Partial right knee replacement 2007. 2. Left breast lumpectomy 1998. 3. Right breast lumpectomy 2000 and again 2002. 4. Hysterectomy 1971. 5. Hemorrhoidectomy 1977. 6. Cholecystectomy in the . MEDICATIONS Her current cardiac medications: 1. Metoprolol 25 mg p.o. q.12h. 2. Pravastatin 40 mg p.o. q.h.s. 3. Losartan 50 mg p.o. b.i.d. 4. Amlodipine 10 mg p.o. q. daily. ALLERGIES No known drug allergies. FAMILY HISTORY Noncontributory. SOCIAL HISTORY The patient denies any history of alcohol or tobacco abuse. REVIEW OF SYSTEMS As in the history of present illness, otherwise negative or noncontributory. She also denies headache, visual changes, unilateral weakness or numbness, melena. PHYSICAL EXAMINATION VITAL SIGNS: On physical examination blood pressure is 137/62 with a pulse of 74, respirations 14. GENERAL: In general she is a well-developed, well-nourished white female in no acute distress. HEENT/NECK: Jugular venous pressure is normal. Carotid pulses are 2+ bilaterally and without bruits. CHEST: Examination of the chest reveals clear lung franklin. CARDIAC: On cardiac examination she has a regular rhythm and rate without S3, S4 or murmur. ABDOMEN: On abdominal examination she has a soft, nontender abdomen. Bowel sounds are present. There is no definite hepatosplenomegaly. EXTREMITIES: Examination of extremities reveals no clubbing, cyanosis or edema. LABORATORY Laboratory data includes WBC 11.2, hemoglobin 13.1, platelets 266, potassium 3.8, BUN 16, creatinine 1.08, INR 1.0. IMAGING Chest x-ray shows no acute disease. EKG EKG from 02/26/2017 at 9:49 a.m. shows atrial fibrillation with rapid ventricular response, nonspecific inferior and lateral ST abnormality. IMPRESSION Paroxysmal atrial fibrillation in a 76-year-old white female with a history of breast cancer, hypertension, rheumatoid arthritis, initially admitted with nausea, vomiting and hematochezia. At this time she is back in sinus rhythm. For the most part she was asymptomatic with the dysrhythmia except for mild dyspnea. There is no evidence for acute coronary syndrome. She did have a normal cardiac catheterization a few years ago. Clinically there is no evidence for pulmonary embolism. The etiology of the atrial fibrillation may be her history of hypertension. Her thromboembolic risk is moderately elevated with her advanced age and history of hypertension. Echocardiogram is pending. RECOMMENDATIONS 1. Will start propafenone to help maintain sinus rhythm. 2. In light of her recent GI bleeding she may not be a good candidate for anticoagulation therapy. However, when cleared from a GI standpoint, would recommend Eliquis 5 mg p.o. b.i.d. If she is unable to take anticoagulation therapy at this time, recommend daily baby aspirin. MD JOCELINE Holly/JOHN /1:58 PM /2:13 PM SHANT
[2017-02-26] MEDS: PROPAFENONE HCL 150 MG TAB PO SCH (17:14)
--- NOTE | 2017-02-26 17:44 | EC ---
Study Study Date:02/26/2017 STUDY CONCLUSIONS SUMMARY - Procedure narrative: Transthoracic echocardiography. Image quality was adequate. Scanning was performed from the parasternal, apical, and subcostal acoustic windows. - Left ventricle: The cavity size was normal. Wall thickness was normal. Systolic function was normal. The estimated ejection fraction was in the range of 55% to 60%. Wall motion was normal; there were no regional wall motion abnormalities. - Aortic valve: Minimal leaflet sclerosis. Trace regurgitation. - Mitral valve: Mildly calcified annulus. Trace regurgitation. - Tricuspid valve: Trace regurgitation. If LV function is below 40, please consider prescribing an ACEI or ARB or document rationale for non-use. PROCEDURE DATA STUDY STATUS: Elective. Procedure: Transthoracic echocardiography. Image quality was adequate. Scanning was performed from the parasternal, apical, and subcostal acoustic windows. Study completion: The patient tolerated the procedure well. Transthoracic echocardiography. M-mode, complete 2D, complete spectral Doppler, and color Doppler. Height: Height: 66in. Weight: Weight: 144.7lb. Body mass index: BMI: 23.4kg/m^2. Body surface area: BSA: 1.74m^2. Patient status: Inpatient. CARDIAC ANATOMY LEFT VENTRICLE: The cavity size was normal. Wall thickness was normal. Systolic function was normal. The estimated ejection fraction was in the range of 55% to 60%. Wall motion was normal; there were no regional wall motion abnormalities. AORTIC VALVE: Minimal leaflet sclerosis. Doppler: Transvalvular velocity was within the normal range. There was no stenosis. Trace regurgitation. Valve area: 2.15cm^2 (Vmax). Indexed valve area: 1.24cm^2/m^2 (Vmax). AORTA: Aortic root: The aortic root was normal in size. MITRAL VALVE: Mildly calcified annulus. Doppler: Transvalvular velocity was within the normal range. There was no evidence for stenosis. Trace regurgitation. Valve area by pressure half-time: 3.79cm^2. Indexed valve area by pressure half-time: 2.18cm^2/m^2. Peak gradient: 5mm Hg (D). LEFT ATRIUM: The atrium was normal in size. RIGHT VENTRICLE: The cavity size was normal. Wall thickness was normal. PULMONIC VALVE: Doppler: Transvalvular velocity was within the normal range. There was no evidence for stenosis. No regurgitation. TRICUSPID VALVE: Structurally normal valve. Doppler: Transvalvular velocity was within the normal range. Trace regurgitation. Peak gradient: 25mm Hg (D). PULMONARY ARTERY: The main pulmonary artery was normal-sized. Systolic pressure was within the normal range. RIGHT ATRIUM: The atrium was normal in size. PERICARDIUM: There was no pericardial effusion. SYSTEMIC VEINS: Inferior vena cava: The vessel was normal in size. Patient weight: 144.7lb _Ejection fraction:_ 65-75% _Fractional shortening:_ 32% up to 5Kg 5-11.5Kg 11.6-22.9Kg 23-45Kg 45-57Kg Aortic Root 7-13 <17 13-22 17-27 17-27 LA diam 6-13 <23 24-38 33-47 37-40 RVID 10-17 7-15 7-15 7-18 8-17 LVIDd 12-22 <32 24-38 33-47 37-40 LVPW 2-4 3-6 5-7 6-8 7-8 IVS 2-4 3-6 5-7 6-8 7-8 BASIC MEASUREMENTS ADULT NORMAL Left ventricle LV internal dimension, ED, chordal 44.5 mm 43-52 level, PLAX LV internal dimension, ES, chordal 28.8 mm 23-38 level, PLAX Fractional shortening, chordal level, 35 % >29 PLAX LV posterior wall thickness, ED 10.4 mm IVS/LVPW ratio, ED 0.99 <1.3 Ventricular septum Septal thickness, ED 10.3 mm Aortic valve Leaflet separation 18 mm 15-26 Left atrium Anterior-posterior dimension 37 mm Anterior-posterior dimension index 2.13 cm/m^2 <2.2 Right ventricle RV internal dimension, ED, PLAX 28.4 mm 19-38 BASIC MEASUREMENTS ADULT NORMAL Aortic valve Leaflet separation 18 mm 15-26 Aorta Root diameter, ED 27 mm 20-37 Left atrium Anterior-posterior dimension, ES 35 mm 19-40 Anterior-posterior dimension index, ES 2.01 cm/m^2 <2.2 LA/aortic root ratio 1.3 DOPPLER MEASUREMENTS ADULT NORMAL Aortic valve Peak velocity, S 156 cm/s Valve area, Vmax 2.15 cm^2 Valve area index, Vmax 1.24 cm^2/m^2 Regurgitant velocity, ED 357 cm/s Regurgitant deceleration 2610 cm/s^2 Regurgitant pressure half-time 400 ms Regurgitant gradient, ED 51 mm Hg Mitral valve Peak E-wave velocity 113 cm/s Peak A-wave velocity 109 cm/s Pressure half-time 58 ms Peak gradient, D 5 mm Hg Peak E/A ratio 1 Valve area, pressure half-time 3.79 cm^2 Valve area index, pressure half-time 2.18 cm^2/m^2 Tricuspid valve Peak gradient, D 25 mm Hg Maximal inflow velocity 250 cm/s Pulmonic valve Peak velocity, S 77.2 cm/s LEGEND: Mean values are shown as u=mean value. Asterisk (*) kay values outside specified normal range. Prepared and signed by Johny Zeng [id number]
--- NOTE | 2017-02-26 19:06 | MB ---
cc: ELIER GUERRERO M.D. DATE OF CONSULTATION 02/26/2017 HISTORY Ms. Herrera is a very pleasant 68-year lady who is an established patient in my practice presents to the emergency room with chief complaint of nausea and vomiting on 02/25/2017. Also complains of abdominal cramping, constipation. Reports bloody stools x3. Otherwise denies any chest pain, fever, chills, cough GI or bleeding, paroxysmal nocturnal dyspnea, orthopnea, syncope or dizziness. PAST MEDICAL HISTORY Per the present history. 1. History of hypertension. 2. Breast cancer status post resection, radiation therapy. 3. Acid reflux. 4. Depression. 5. Peptic ulcer disease. 6. Arthritis. 7. Hyperlipidemia. 8. Hiatal hernia. 9. Partial knee replacement. 10. Cholecystectomy. 11. Lumpectomy. SOCIAL HISTORY Denies tobacco or alcohol use. ALLERGIES None. MEDICATIONS At home: 1. Simvastatin 20. 2. Losartan. 3. Pantoprazole. 4. Proxetine. 5. Amlodipine 10. Medications currently in the hospital: 1. Propafenone 150 t.i.d. 2. Metoprolol 25 q.12. 3. Pantoprazole 40 q.24 IV. 4. Paroxetine 40 daily. 5. Pravastatin 40 daily. 6. Losartan 50 b.i.d. 7. Amlodipine 10 daily. PHYSICAL EXAMINATION VITAL SIGNS: Blood pressure 124/59, pulse 65, temperature 98.5. GENERAL: She is an alert and oriented times three in no acute distress. NECK: Supple. No JVD. No bruit. CARDIOVASCULAR: Normal S1-S2. No murmurs, rubs, or gallops. She is in normal sinus rhythm at the time of dictation. LUNGS: Clear to auscultation bilaterally. ABDOMEN: Soft, nontender, nondistended with positive bowel sounds. EXTREMITIES: No lower extremity edema. LABORATORY DATA White count 11.2, hemoglobin 13.1, hematocrit 38.0, platelet count 266. Sodium 143, potassium 3.8, chloride 107, bicarb 28.1, BUN 60, creatinine 1.08. INR is 1.0. IMAGING Chest x-ray no acute cardiopulmonary disease. EKG, atrial fibrillation at a rate of 127 beats per minute. [address] segment depression in lead V5, V6. DIAGNOSES She has the following diagnoses: 1. Paroxysmal A fib 2. Hypertension. 3. GI bleeding. 4. Hyperlipidemia. 5. Elevated total bilirubin equaling 1.3. DISCUSSION At this point in time the patient has converted to sinus rhythm on metoprolol and propafenone. Due to her GI bleeding anticoagulation will be held. I did discuss this in detail with Dr. Villaseñor. The patient remains stable. In the short-term I suspect that she will be a candidate for long-term anticoagulation. I do recommend Coumadin and/or novel oral anticoagulant agent due to CHADS score of 2 due to her age greater than 70 and history of hypertension. Otherwise continue telemetry monitoring. Monitor hemoglobin. Elier Guerrero MD AWC/KK /5:11 PM /6:53 PM
[2017-02-26] MEDS: SODIUM CHLORIDE 0.9% FLUSH 10 ML FLUSH IV FLUSH SCH (21:00)
[2017-02-26] MEDS: LOSARTAN 50 MG TAB PO SCH ×2 (21:00→21:36)
[2017-02-27] VITALS (21 sets, daily range): BP systolic 128–145; BP diastolic 55–71; PULSE 60–76; RESP 16–18; TEMP 98.2–98.7; O2SAT 94–98
--- NOTE | 2017-02-27 07:57 | HHI.PR ---
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 also had Colonoscopy found Diverticulosis and no Diverticulitis, Circumferential Colitis was found in the Sigmoid Colon internal hemorrhoids. the patient developed Atrial Fibrillation given Cardizem and Amiodarone by Anesthesiology I started her on Metoprolol and I see crop pest control specialist was consulted by Doctor Kasi. 02/27: Seen in her Bedroom in the presence of her , no new issues eating and drinking without difficulty No nausea, vomit or diarrhea. is in sinus rhythm at 60 beats per minute. Objective Vital Signs Date Time Temp Pulse Resp B/P Pulse Ox O2 Delivery O2 Flow Rate FiO2 02/27/17 06:00 67 02/27/17 05:00 70 02/27/17 04:00 64 02/27/17 03:00 65 02/27/17 03:00 98.2 64 18 128/70 96 02/27/17 02:00 68 02/27/17 01:00 71 02/27/17 00:00 98.2 67 18 131/71 96 02/27/17 00:00 67 02/26/17 23:00 72 02/26/17 22:00 74 02/26/17 21:00 69 02/26/17 20:00 78 02/26/17 20:00 98.1 78 18 136/63 96 02/26/17 19:00 72 02/26/17 18:07 76 02/26/17 17:08 69 02/26/17 16:12 68 02/26/17 15:00 65 02/26/17 15:00 98.4 72 16 124/59 95 02/26/17 13:00 74 14 137/62 98 Nasal Cannula 2 02/26/17 12:15 74 14 135/64 98 Nasal Cannula 2 02/26/17 12:00 80 14 136/59 97 Nasal Cannula 2 02/26/17 11:45 81 14 129/61 97 Nasal Cannula 2 02/26/17 11:30 87 14 129/62 97 Nasal Cannula 2 02/26/17 11:15 130 16 125/63 98 Nasal Cannula 3 02/26/17 11:00 128 16 122/61 97 Nasal Cannula 3 02/26/17 10:45 116 15 118/58 97 Nasal Cannula 3 02/26/17 10:30 121 14 112/57 96 Nasal Cannula 3 02/26/17 10:15 144 14 113/58 97 Nasal Cannula 3 02/26/17 10:04 97.7 138 14 125/57 97 Nasal Cannula 3 02/26/17 08:20 97.9 79 16 164/74 95 I/O 02/26/17 02/26/17 02/26/17 02/27/17 02/27/17 02/27/17 07:00 15:00 23:00 07:00 15:00 23:00 Intake Total 550 ml 420 ml 320 ml Output Total 275 ml 250 ml 350 ml Balance 275 ml 170 ml -30 ml Intake Oral 420 ml 320 ml IV Total 100 ml Other 450 ml Output Urine Total 275 ml 250 ml 350 ml # Voids 1 # Bowel Movements 2 0 Result Diagram: 02/26/177 02/26/17426 Imaging Last Impressions Chest X-Ray 02/25/17256 Signed Impressions: Service Date/Time: Saturday, February 25, 2017 03:12 - CONCLUSION: 1. No acute cardiopulmonary disease. Germain Zelaya MD Abdomen/Pelvis CT 02/25/17256 Signed Impressions: Service Date/Time: Saturday, February 25, 2017 03:06 - CONCLUSION: 1. 2 cm solid left renal mass. Malignancy is not excluded. MRI with contrast is recommended for further evaluation if clinically indicated. 2. Diverticulosis without evidence of diverticulitis. Germain Zelaya MD Procedures EGD and Colonoscopy Other Results Laboratory Tests Test 02/25/17 02/25/17 02/25/17 02/26/17 03:12 06:10 07:20 04:27 Prothrombin Time 11.0 SEC Prothromb Time International 1.0 RATIO Ratio Activated Partial 24.3 SEC Thromboplast Time Lactic Acid Level 1.8 mmol/L Magnesium Level 2.4 MG/DL Total Bilirubin 1.3 MG/DL Aspartate Amino Transf 17 U/L (AST/SGOT) Alanine Aminotransferase 21 U/L (ALT/SGPT) Alkaline Phosphatase 88 U/L C-Reactive Protein LESS THAN 0.29 MG/DL Total Protein 7.1 GM/DL Albumin 4.0 GM/DL Urine Color LIGHT-YELLOW Urine Turbidity CLEAR Urine pH 7.0 Urine Specific [place] 1.007 Urine Protein NEG mg/dL Urine Glucose (UA) NEG mg/dL Urine Ketones NEG mg/dL Urine Occult Blood NEG Urine Nitrite NEG Urine Bilirubin NEG Urine Urobilinogen LESS THAN 2.0 MG/DL Urine Leukocyte Esterase NEG Urine RBC 1 /hpf Urine WBC LESS THAN 1 /hpf Urine Mucus FEW /lpf Microscopic Urinalysis Comment CULT NOT INDICATED Blood Type O POSITIVE Antibody Screen NEGATIVE White Blood Count 11.2 TH/MM3 Red Blood Count 4.26 MIL/MM3 Hemoglobin 13.1 GM/DL Hematocrit 38.0 % Mean Corpuscular Volume 89.2 FL Mean Corpuscular Hemoglobin 30.6 PG Mean Corpuscular Hemoglobin 34.3 % Concent Red Cell Distribution Width 13.2 % Platelet Count 266 TH/MM3 Mean Platelet Volume 8.0 FL Neutrophils (%) (Auto) 76.3 % Lymphocytes (%) (Auto) 14.0 % Monocytes (%) (Auto) 8.1 % Eosinophils (%) (Auto) 0.9 % Basophils (%) (Auto) 0.7 % Neutrophils # (Auto) 8.6 TH/MM3 Lymphocytes # (Auto) 1.6 TH/MM3 Monocytes # (Auto) 0.9 TH/MM3 Eosinophils # (Auto) 0.1 TH/MM3 Basophils # (Auto) 0.1 TH/MM3 CBC Comment DIFF FINAL Differential Comment Sodium Level 143 MEQ/L Potassium Level 3.8 MEQ/L Chloride Level 107 MEQ/L Carbon Dioxide Level 28.1 MEQ/L Anion Gap 8 MEQ/L Blood Urea Nitrogen 16 MG/DL Creatinine 1.08 MG/DL Estimat Glomerular Filtration 49 ML/MIN Rate Random Glucose 100 MG/DL Calcium Level 9.4 MG/DL Objective Remarks GENERAL: This is a well-nourished, well-developed patient, in no apparent distress. But looks to be weak, in pain from abdomen. SKIN: No rashes, ecchymoses or lesions. Cool and dry. HEAD: Atraumatic. Normocephalic. No temporal or scalp tenderness. EYES: No scleral icterus. No injection or drainage. ENT: Nose without bleeding, purulent drainage or septal hematoma. Airway patent. NECK: Trachea midline. No JVD. Supple, nontender, no meningeal signs. CARDIOVASCULAR: Regular rate and rhythm without murmurs, gallops, or rubs. RESPIRATORY: Clear to auscultation. Breath sounds equal bilaterally. No wheezes , rales, or rhonchi. ABDOMEN: soft, non tender, no rebound MUSCULOSKELETAL: Extremities without clubbing, cyanosis, or edema. No calf tenderness. NEUROLOGICAL: Awake and alert. Motor and sensory grossly within normal limits.Normal speech. Medications and IVs Current Medications Medications (Trade) Dose Ordered Sig/[place] Route Start Time Stop Time Status Last Admin (NS Flush) 2 ml UNSCH PRN IV FLUSH 02/25/17 06:00 (NS Flush) 2 ml BID IV FLUSH 02/25/17 09:00 02/26/17 21:00 (Narcan Inj) 0.4 mg UNSCH PRN IV 02/25/17 06:00 (Morphine Inj) 2 mg Q3H PRN IV PUSH 02/25/17 06:30 (Vasotec Inj) 2.5 mg Q6H PRN IV PUSH 02/25/17 06:45 (Norvasc) 10 mg DAILY PO 02/25/17 14:30 02/25/17 14:37 (Cozaar) 50 mg BID PO 02/25/17 15:00 02/26/17 21:00 (Paxil) 40 mg DAILY PO 02/26/17 09:00 (Pravachol) 40 mg DAILY PO 02/26/17 09:00 Miscellaneous Information ALL NURSING DEPARTME... UNSCH PRN .XX 02/26/17 09:15 02/27/17 09:14 (Protonix Inj) 40 mg Q24H IV PUSH 02/26/17 11:15 02/26/17 12:15 (Lopressor) 25 mg Q12HR PO 02/26/17 12:00 02/26/17 21:36 (Rythmol) 150 mg TID PO 02/26/17 18:00 02/26/17 17:14 A/P Assessment and Plan (1) Abdominal pain ICD Code: R10.9 Status: Acute (2) Bright red blood per rectum ICD Code: K62.5 Status: Acute (3) Vomiting ICD Code: R11.10 Status: Acute Assessment and Plan 1. Lower GI bleed, Intractable Nausea and vomit Improved, Leukocytosis, MRI with incidental finding of solid renal mass will need follow up with Imaging studies in six months, Status post EGD found short segment of Rogers's Esophagus in distal esophagus erythematous gastritis in the gastric antrum, biopsy performed, recommended to continue PPIs. also had Colonoscopy found Diverticulosis and no Diverticulitis, Circumferential Colitis was found in the Sigmoid Colon internal hemorrhoids. 2. New onset of Atrial Fibrillation now on Sinus rhythm to continue Beta leonid and Propafenone 3. Hypertension controlled. 4. Ischemic Colitis asked by Doctor Kasi not to start anticoagulation in the next two days to crop pest control specialist. 5. Hyperlipidemia to continue Statins. DVT prophylaxiswith SCD. GI prophylaxison pantoprazole. Discussed Condition With Patient, Nurse Miss Mcmullen. and her in the room. Discharge Planning Once cleared by specialists. Shai Moffett MD February 27, 2017 07:57 DVT prophylaxiswith SCD. GI prophylaxison pantoprazole. Discussed Condition With Discharge Planning Once cleared by specialists. Shai Moffett MD February 27, 2017 07:57
[2017-02-27] MEDS: PRAVASTATIN SOD 40 MG TAB PO SCH (09:00)
[2017-02-27] MEDS: PARoxetine HCL 20 MG TAB PO SCH (09:00)
[2017-02-27] MEDS: LOSARTAN 50 MG TAB PO SCH ×2 (09:20→20:38)
[2017-02-27] MEDS: PROPAFENONE HCL 150 MG TAB PO SCH ×3 (09:20→17:09)
[2017-02-27] MEDS: METOPROLOL TARTRATE 25 MG TAB PO SCH ×2 (09:20→20:38)
[2017-02-27] MEDS: SODIUM CHLORIDE 0.9% FLUSH 10 ML FLUSH IV FLUSH SCH ×2 (09:28→20:48)
--- NOTE | 2017-02-27 12:26 | PD.CARD.PN ---
Subjective Subjective Remarks alert in nad Objective Vital Signs / I&O Vital Signs Date Time Temp Pulse Resp B/P Pulse Ox O2 Delivery O2 Flow Rate FiO2 02/27/17 08:00 98.4 67 16 145/60 98 02/27/17 06:00 67 02/27/17 05:00 70 02/27/17 04:00 64 02/27/17 03:00 65 02/27/17 03:00 98.2 64 18 128/70 96 02/27/17 02:00 68 02/27/17 01:00 71 02/27/17 00:00 98.2 67 18 131/71 96 02/27/17 00:00 67 02/26/17 23:00 72 02/26/17 22:00 74 02/26/17 21:00 69 02/26/17 20:00 78 02/26/17 20:00 98.1 78 18 136/63 96 02/26/17 19:00 72 02/26/17 18:07 76 02/26/17 17:08 69 02/26/17 16:12 68 02/26/17 15:00 65 02/26/17 15:00 98.4 72 16 124/59 95 02/26/17 13:00 74 14 137/62 98 Nasal Cannula 2 I/O 02/26/17 02/26/17 02/26/17 02/27/17 02/27/17 02/27/17 07:00 15:00 23:00 07:00 15:00 23:00 Intake Total 550 ml 420 ml 320 ml Output Total 275 ml 250 ml 350 ml Balance 275 ml 170 ml -30 ml Intake Oral 420 ml 320 ml IV Total 100 ml Other 450 ml Output Urine Total 275 ml 250 ml 350 ml # Voids 1 # Bowel Movements 2 0 Physical Exam GENERAL: SKIN: Warm and dry. HEAD: Normocephalic. EYES: No scleral icterus. No injection or drainage. NECK: Supple, trachea midline. No JVD or lymphadenopathy. CARDIOVASCULAR: Regular rate and rhythm without murmurs, gallops, or rubs. RESPIRATORY: Breath sounds equal bilaterally. No accessory muscle use. GASTROINTESTINAL: Abdomen soft, non-tender, nondistended. MUSCULOSKELETAL: No cyanosis, or edema. BACK: Nontender without obvious deformity. No CVA tenderness. Assessment and Plan Problem List: (1) Bright red blood per rectum (2) Abdominal pain (3) Vomiting (4) Atrial fibrillation Assessment and Plan 1.) PAF - nsr, ac held due to recent gib, on propaphenone and metoprolol Problem Qualifiers (1) Abdominal pain: Qualified Code: R10.84 - Generalized abdominal pain (2) Vomiting: Qualified Code: R11.2 - Non-intractable vomiting with nausea, unspecified vomiting type Elier Carl MD February 27, 2017 12:26
[2017-02-27] MEDS: PANTOPRAZOLE SODIUM 40 MG VIAL IV PUSH SCH (13:07)
--- NOTE | 2017-02-27 13:14 | HHI.GIFU ---
Subjective Remarks Pt resting in bed, visiting with . She is c/o brief abdominal cramping when she tries to eat and nausea when she takes her meds b/c she hasn't eaten. THe cramping subsides in a few minutes. She has not had a BM since the colonoscopy. Denies vomiting, bleeding. (Janna Quiroz) Objective Vitals I&O Vital Signs Date Time Temp Pulse Resp B/P Pulse Ox O2 Delivery O2 Flow Rate FiO2 02/27/17 08:00 98.4 67 16 145/60 98 02/27/17 06:00 67 02/27/17 05:00 70 02/27/17 04:00 64 02/27/17 03:00 65 02/27/17 03:00 98.2 64 18 128/70 96 02/27/17 02:00 68 02/27/17 01:00 71 02/27/17 00:00 98.2 67 18 131/71 96 02/27/17 00:00 67 02/26/17 23:00 72 02/26/17 22:00 74 02/26/17 21:00 69 02/26/17 20:00 78 02/26/17 20:00 98.1 78 18 136/63 96 02/26/17 19:00 72 02/26/17 18:07 76 02/26/17 17:08 69 02/26/17 16:12 68 02/26/17 15:00 65 02/26/17 15:00 98.4 72 16 124/59 95 I/O 02/26/17 02/26/17 02/26/17 02/27/17 02/27/17 02/27/17 07:00 15:00 23:00 07:00 15:00 23:00 Intake Total 550 ml 420 ml 320 ml Output Total 275 ml 250 ml 350 ml Balance 275 ml 170 ml -30 ml Intake Oral 420 ml 320 ml IV Total 100 ml Other 450 ml Output Urine Total 275 ml 250 ml 350 ml # Voids 1 # Bowel Movements 2 0 Imaging Last Impressions Chest X-Ray 02/25/17256 Signed Impressions: Service Date/Time: Saturday, February 25, 2017 03:12 - CONCLUSION: 1. No acute cardiopulmonary disease. Germain Zelaya MD Abdomen/Pelvis CT 02/25/17256 Signed Impressions: Service Date/Time: Saturday, February 25, 2017 03:06 - CONCLUSION: 1. 2 cm solid left renal mass. Malignancy is not excluded. MRI with contrast is recommended for further evaluation if clinically indicated. 2. Diverticulosis without evidence of diverticulitis. Germain Zelaya MD Physical Exam HEENT: EOMI; normocephalic; atraumatic; no jaundice. CHEST: Chest is clear to auscultation and percussion. CARDIAC: Regular rate and rhythm with no murmur gallop or rubs. ABDOMEN: Soft, nondistended, nontender; no hepatosplenomegaly; bowel sounds are present in all four quadrants. EXTREMITIES: No clubbing, cyanosis, or edema. SKIN: Normal; no rash; no jaundice. AMBULANCE DISPATCHER: No focal deficits; alert and oriented times three. (Janna Quiroz) Assessment and Plan Plan ASSESSMENT: - Rectal bleeding/BRBPR. s/p colonoscopy & EGD 02-26-17 ---> short segment wong's distal esophagus, erythematous gastritis, moderate diverticulosis, circumferential colitis sigmoid, mucosa erythematous and had granularity. Started having nausea/vomiting, followed by straining to move her bowels. She later started having moderate amount of BRBPR, about 3-4 episodes with the last episode around 2am. Diverticulosis noted on CT scan. - Nausea, Vomiting. Remote hx of PUD. PPI. Started after eating out at a [employer] Restaurant. - Abdominal pain. Abdomen/Pelvis CT (02/25/17)----> 1. 2 cm solid left renal mass. Malignancy is not excluded. MRI with contrast is recommended for further evaluation if clinically indicated. 2. Diverticulosis without evidence of diverticulitis. - GERD. PPI - Abnormal imaging with kidney PLAN: - DARLYN - Monitor HH - Transfuse as necessary - Protonix - Supportive care - await biopsies from EGD colonoscopy - Further recommendations to follow based on results of above - PT seen and examined by Dr. Villaseñor and myself and this note is written on his behalf (Janna Quiroz) Physician Comments Seen and examined with GUEST HISTORY CLERK< s/p colonoscopy with colitis. No bleeding at this time. May anticoagulate judiciously. Biopsies-p. Bentyl for cramping. (Bharathi Villaseñor MD) Janna Quiroz February 27, 2017 13:14 Bharathi Villaseñor MD February 27, 2017 13:30
[2017-02-28] VITALS (13 sets, daily range): BP systolic 111–155; BP diastolic 50–87; PULSE 56–66; RESP 16; TEMP 97.9–98.9; O2SAT 96–98
[2017-02-28 07:06] LABS: AUTOMATED NEUTROPHIL # 4.6 TH/MM3 (1.8-7.7); BASOPHIL % 0.7 % (0.0-2.0); EOSINOPHIL # 0.4 TH/MM3 (0-0.4); HEMATOCRIT 37.3 % (35.0-46.0); HEMO FLAGS DIFF FINAL; LYMPH % 20.6 % (9.0-44.0); LYMPHOCYTE # 1.4 TH/MM3 (1.0-4.8); MEAN CELL VOLUME 90.2 FL (80.0-100.0); MEAN CORPUSCULAR HEMOGLOBIN 30.3 PG (27.0-34.0); MEAN CORPUSCULAR HGB CONC 33.6 % (32.0-36.0); MONO % 8.8 % (0.0-8.0); NEUT % 64.9 % (16.0-70.0); PLATELET COUNT 239 TH/MM3 (150-450); RED BLOOD COUNT 4.14 MIL/MM3 (4.00-5.30)
[2017-02-28 07:30] LABS: BICARBONATE 30.9 MEQ/L (21.0-32.0); MAGNESIUM 2.3 MG/DL (1.5-2.5); POTASSIUM 3.9 MEQ/L (3.5-5.1)
--- NOTE | 2017-02-28 08:29 | HHI.PR ---
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 also had Colonoscopy found Diverticulosis and no Diverticulitis, Circumferential Colitis was found in the Sigmoid Colon internal hemorrhoids. the patient developed Atrial Fibrillation given Cardizem and Amiodarone by Anesthesiology I started her on Metoprolol and I see medical coding specialist was consulted by Doctor Kasi. 02/27: Seen in her Bedroom in the presence of her , no new issues eating and drinking without difficulty. 02/28: Patient seen in her bedroom, not recommended by Cardiology to continue anticoagulation due to recent GI bleed, but will go on Metoprolol and Propafenone, stable in her bedroom, no nausea, vomit or diarrhea, okay to discharge home by GI specialist. Objective Vital Signs Date Time Temp Pulse Resp B/P Pulse Ox O2 Delivery O2 Flow Rate FiO2 02/28/17 06:00 64 02/28/17 05:00 62 02/28/17 04:00 65 02/28/17 04:00 97.9 63 16 127/56 97 02/28/17 03:00 62 02/28/17 02:00 62 02/28/17 01:00 62 02/28/17 00:00 98.9 65 16 111/50 98 02/28/17 00:00 66 02/27/17 23:00 64 02/27/17 22:00 68 02/27/17 21:00 72 02/27/17 20:00 74 02/27/17 20:00 98.4 69 18 135/67 94 02/27/17 19:00 76 02/27/17 17:06 98.6 64 18 144/71 98 02/27/17 16:16 67 02/27/17 14:00 72 02/27/17 13:10 98.7 67 16 131/55 95 02/27/17 13:00 66 02/27/17 11:00 66 02/27/17 10:00 60 02/27/17 09:00 68 I/O 02/27/17 02/27/17 02/27/17 02/28/17 02/28/17 02/28/17 07:00 15:00 23:00 07:00 15:00 23:00 Intake Total 320 ml 240 ml Output Total 350 ml 1050 ml Balance -30 ml -810 ml Intake Oral 320 ml 240 ml IV Total 0 ml Output Urine Total 350 ml 1050 ml # Voids 3 # Bowel Movements 0 0 Result Diagram: 02/28/17 0600 02/28/17599 Imaging Last Impressions Chest X-Ray 02/25/17256 Signed Impressions: Service Date/Time: Saturday, February 25, 2017 03:12 - CONCLUSION: 1. No acute cardiopulmonary disease. Germain Zelaya MD Abdomen/Pelvis CT 02/25/17256 Signed Impressions: Service Date/Time: Saturday, February 25, 2017 03:06 - CONCLUSION: 1. 2 cm solid left renal mass. Malignancy is not excluded. MRI with contrast is recommended for further evaluation if clinically indicated. 2. Diverticulosis without evidence of diverticulitis. Germain Zelaya MD Procedures EGD and Colonoscopy Other Results Laboratory Tests Test 02/25/17 02/25/17 02/25/17 02/28/17 03:12 06:10 07:20 06:00 Prothrombin Time 11.0 SEC Prothromb Time International 1.0 RATIO Ratio Activated Partial 24.3 SEC Thromboplast Time Lactic Acid Level 1.8 mmol/L Total Bilirubin 1.3 MG/DL Aspartate Amino Transf 17 U/L (AST/SGOT) Alanine Aminotransferase 21 U/L (ALT/SGPT) Alkaline Phosphatase 88 U/L C-Reactive Protein LESS THAN 0.29 MG/DL Total Protein 7.1 GM/DL Albumin 4.0 GM/DL Urine Color LIGHT-YELLOW Urine Turbidity CLEAR Urine pH 7.0 Urine Specific Asher 1.007 Urine Protein NEG mg/dL Urine Glucose (UA) NEG mg/dL Urine Ketones NEG mg/dL Urine Occult Blood NEG Urine Nitrite NEG Urine Bilirubin NEG Urine Urobilinogen LESS THAN 2.0 MG/DL Urine Leukocyte Esterase NEG Urine RBC 1 /hpf Urine WBC LESS THAN 1 /hpf Urine Mucus FEW /lpf Microscopic Urinalysis Comment CULT NOT INDICATED Blood Type O POSITIVE Antibody Screen NEGATIVE White Blood Count 7.0 TH/MM3 Red Blood Count 4.14 MIL/MM3 Hemoglobin 12.5 GM/DL Hematocrit 37.3 % Mean Corpuscular Volume 90.2 FL Mean Corpuscular Hemoglobin 30.3 PG Mean Corpuscular Hemoglobin 33.6 % Concent Red Cell Distribution Width 13.0 % Platelet Count 239 TH/MM3 Mean Platelet Volume 8.2 FL Neutrophils (%) (Auto) 64.9 % Lymphocytes (%) (Auto) 20.6 % Monocytes (%) (Auto) 8.8 % Eosinophils (%) (Auto) 5.0 % Basophils (%) (Auto) 0.7 % Neutrophils # (Auto) 4.6 TH/MM3 Lymphocytes # (Auto) 1.4 TH/MM3 Monocytes # (Auto) 0.6 TH/MM3 Eosinophils # (Auto) 0.4 TH/MM3 Basophils # (Auto) 0.0 TH/MM3 CBC Comment DIFF FINAL Differential Comment Sodium Level 142 MEQ/L Potassium Level 3.9 MEQ/L Chloride Level 105 MEQ/L Carbon Dioxide Level 30.9 MEQ/L Anion Gap 6 MEQ/L Blood Urea Nitrogen 18 MG/DL Creatinine 1.21 MG/DL Estimat Glomerular Filtration 43 ML/MIN Rate Random Glucose 103 MG/DL Calcium Level 9.5 MG/DL Magnesium Level 2.3 MG/DL Objective Remarks GENERAL: This is a well-nourished, well-developed patient, in no apparent distress. But looks to be weak, in pain from abdomen. SKIN: No rashes, ecchymoses or lesions. Cool and dry. HEAD: Atraumatic. Normocephalic. No temporal or scalp tenderness. EYES: No scleral icterus. No injection or drainage. ENT: Nose without bleeding, purulent drainage or septal hematoma. Airway patent. NECK: Trachea midline. No JVD. Supple, nontender, no meningeal signs. CARDIOVASCULAR: Regular rate and rhythm without murmurs, gallops, or rubs. RESPIRATORY: Clear to auscultation. Breath sounds equal bilaterally. No wheezes , rales, or rhonchi. ABDOMEN: soft, non tender, no rebound MUSCULOSKELETAL: Extremities without clubbing, cyanosis, or edema. No calf tenderness. NEUROLOGICAL: Awake and alert. Motor and sensory grossly within normal limits.Normal speech. Medications and IVs Current Medications Medications (Trade) Dose Ordered Sig/Donavan Route Start Time Stop Time Status Last Admin (NS Flush) 2 ml UNSCH PRN IV FLUSH 02/25/17 06:00 (NS Flush) 2 ml BID IV FLUSH 02/25/17 09:00 02/27/17 20:48 (Narcan Inj) 0.4 mg UNSCH PRN IV 02/25/17 06:00 (Morphine Inj) 2 mg Q3H PRN IV PUSH 02/25/17 06:30 (Vasotec Inj) 2.5 mg Q6H PRN IV PUSH 02/25/17 06:45 (Norvasc) 10 mg DAILY PO 02/25/17 14:30 02/27/17 09:00 (Cozaar) 50 mg BID PO 02/25/17 15:00 02/27/17 20:38 (Paxil) 40 mg DAILY PO 02/26/17 09:00 02/27/17 09:00 (Pravachol) 40 mg DAILY PO 02/26/17 09:00 02/27/17 09:00 (Protonix Inj) 40 mg Q24H IV PUSH 02/26/17 11:15 02/27/17 13:07 (Lopressor) 25 mg Q12HR PO 02/26/17 12:00 02/27/17 20:38 (Rythmol) 150 mg TID PO 02/26/17 18:00 02/27/17 17:09 A/P Assessment and Plan (1) Abdominal pain ICD Code: R10.9 Status: Acute (2) Bright red blood per rectum ICD Code: K62.5 Status: Acute (3) Vomiting ICD Code: R11.10 Status: Acute Assessment and Plan 1. Lower GI bleed, Intractable Nausea and vomit Improved, Leukocytosis, MRI with incidental finding of solid renal mass will need follow up with Imaging studies in six months, Status post EGD found short segment of Rogers's Esophagus in distal esophagus erythematous gastritis in the gastric antrum, biopsy performed, recommended to continue PPIs. also had Colonoscopy found Diverticulosis and no Diverticulitis, Circumferential Colitis was found in the Sigmoid Colon internal hemorrhoids. continue PPIs at home and follow for biopsy result with GI specialist. 2. New onset of Atrial Fibrillation now on Sinus rhythm to continue Beta leonid and Propafenone, not recommended anticoagulation due to recent GI bleed. 3. Hypertension controlled. 4. Ischemic Colitis asked by Doctor Kasi not to start anticoagulation in the next two days to medical coding specialist. 5. Hyperlipidemia to continue Statins. DVT prophylaxiswith SCD. GI prophylaxison pantoprazole. Discussed Condition With Patient, Nurse Miss Vizcarra and her in the room Discharge Planning Discharge Home now Shai Moffett MD February 28, 2017 08:29
[2017-02-28] MEDS: LOSARTAN 50 MG TAB PO SCH (08:43)
[2017-02-28] MEDS: PROPAFENONE HCL 150 MG TAB PO SCH (08:43)
[2017-02-28] MEDS: PARoxetine HCL 20 MG TAB PO SCH (08:43)
[2017-02-28] MEDS: PRAVASTATIN SOD 40 MG TAB PO SCH (08:43)
[2017-02-28] MEDS: SODIUM CHLORIDE 0.9% FLUSH 10 ML FLUSH IV FLUSH SCH (08:44)
[2017-02-28] MEDS: METOPROLOL TARTRATE 25 MG TAB PO SCH (08:44)
--- NOTE | 2017-02-28 10:11 | PD.CARD.PN ---
Subjective Subjective Remarks alert in nad Objective Vital Signs / I&O Vital Signs Date Time Temp Pulse Resp B/P Pulse Ox O2 Delivery O2 Flow Rate FiO2 02/28/17 08:00 62 02/28/17 08:00 98.1 64 16 155/87 96 02/28/17 06:00 64 02/28/17 05:00 62 02/28/17 04:00 65 02/28/17 04:00 97.9 63 16 127/56 97 02/28/17 03:00 62 02/28/17 02:00 62 02/28/17 01:00 62 02/28/17 00:00 98.9 65 16 111/50 98 02/28/17 00:00 66 02/27/17 23:00 64 02/27/17 22:00 68 02/27/17 21:00 72 02/27/17 20:00 74 02/27/17 20:00 98.4 69 18 135/67 94 02/27/17 19:00 76 02/27/17 17:06 98.6 64 18 144/71 98 02/27/17 16:16 67 02/27/17 14:00 72 02/27/17 13:10 98.7 67 16 131/55 95 02/27/17 13:00 66 02/27/17 11:00 66 I/O 02/27/17 02/27/17 02/27/17 02/28/17 02/28/17 02/28/17 07:00 15:00 23:00 07:00 15:00 23:00 Intake Total 320 ml 240 ml Output Total 350 ml 1050 ml Balance -30 ml -810 ml Intake Oral 320 ml 240 ml IV Total 0 ml Output Urine Total 350 ml 1050 ml # Voids 3 # Bowel Movements 0 0 Physical Exam GENERAL: SKIN: Warm and dry. HEAD: Normocephalic. EYES: No scleral icterus. No injection or drainage. NECK: Supple, trachea midline. No JVD or lymphadenopathy. CARDIOVASCULAR: Regular rate and rhythm without murmurs, gallops, or rubs. RESPIRATORY: Breath sounds equal bilaterally. No accessory muscle use. GASTROINTESTINAL: Abdomen soft, non-tender, nondistended. MUSCULOSKELETAL: No cyanosis, or edema. BACK: Nontender without obvious deformity. No CVA tenderness. Laboratory Laboratory Tests Test 02/28/17 06:00 White Blood Count 7.0 TH/MM3 Red Blood Count 4.14 MIL/MM3 Hemoglobin 12.5 GM/DL Hematocrit 37.3 % Mean Corpuscular Volume 90.2 FL Mean Corpuscular Hemoglobin 30.3 PG Mean Corpuscular Hemoglobin 33.6 % Concent Red Cell Distribution Width 13.0 % Platelet Count 239 TH/MM3 Mean Platelet Volume 8.2 FL Neutrophils (%) (Auto) 64.9 % Lymphocytes (%) (Auto) 20.6 % Monocytes (%) (Auto) 8.8 % Eosinophils (%) (Auto) 5.0 % Basophils (%) (Auto) 0.7 % Neutrophils # (Auto) 4.6 TH/MM3 Lymphocytes # (Auto) 1.4 TH/MM3 Monocytes # (Auto) 0.6 TH/MM3 Eosinophils # (Auto) 0.4 TH/MM3 Basophils # (Auto) 0.0 TH/MM3 CBC Comment DIFF FINAL Differential Comment Sodium Level 142 MEQ/L Potassium Level 3.9 MEQ/L Chloride Level 105 MEQ/L Carbon Dioxide Level 30.9 MEQ/L Anion Gap 6 MEQ/L Blood Urea Nitrogen 18 MG/DL Creatinine 1.21 MG/DL Estimat Glomerular Filtration 43 ML/MIN Rate Random Glucose 103 MG/DL Calcium Level 9.5 MG/DL Magnesium Level 2.3 MG/DL Assessment and Plan Problem List: (1) Bright red blood per rectum (2) Abdominal pain (3) Vomiting (4) Atrial fibrillation Assessment and Plan 1.) PAF - nsr, ac held due to recent gib, on propaphenone and metoprolol; advised patient to f/u with me in office [place] after dc Problem Qualifiers (1) Abdominal pain: Qualified Code: R10.84 - Generalized abdominal pain (2) Vomiting: Qualified Code: R11.2 - Non-intractable vomiting with nausea, unspecified vomiting type Elier Carl MD February 28, 2017 10:11
[2017-02-28] MEDS: PANTOPRAZOLE SODIUM 40 MG VIAL IV PUSH SCH (10:57)
--- NOTE | 2017-02-28 11:08 | HHI.GIFU ---
Subjective Remarks Pt is OOB, says she feels better. She was having nausea after taking pills but took with food and now that's better and no more cramping. Denies pain, n/v, bleeding. (Janna Quiroz) Objective Vitals I&O Vital Signs Date Time Temp Pulse Resp B/P Pulse Ox O2 Delivery O2 Flow Rate FiO2 02/28/17 08:00 62 02/28/17 08:00 98.1 64 16 155/87 96 02/28/17 06:00 64 02/28/17 05:00 62 02/28/17 04:00 65 02/28/17 04:00 97.9 63 16 127/56 97 02/28/17 03:00 62 02/28/17 02:00 62 02/28/17 01:00 62 02/28/17 00:00 98.9 65 16 111/50 98 02/28/17 00:00 66 02/27/17 23:00 64 02/27/17 22:00 68 02/27/17 21:00 72 02/27/17 20:00 74 02/27/17 20:00 98.4 69 18 135/67 94 02/27/17 19:00 76 02/27/17 17:06 98.6 64 18 144/71 98 02/27/17 16:16 67 02/27/17 14:00 72 02/27/17 13:10 98.7 67 16 131/55 95 02/27/17 13:00 66 I/O 02/27/17 02/27/17 02/27/17 02/28/17 02/28/17 02/28/17 07:00 15:00 23:00 07:00 15:00 23:00 Intake Total 320 ml 240 ml Output Total 350 ml 1050 ml Balance -30 ml -810 ml Intake Oral 320 ml 240 ml IV Total 0 ml Output Urine Total 350 ml 1050 ml # Voids 3 # Bowel Movements 0 0 Laboratory Laboratory Tests Test 02/28/17 06:00 White Blood Count 7.0 Red Blood Count 4.14 Hemoglobin 12.5 Hematocrit 37.3 Mean Corpuscular Volume 90.2 Mean Corpuscular Hemoglobin 30.3 Mean Corpuscular Hemoglobin 33.6 Concent Red Cell Distribution Width 13.0 Platelet Count 239 Mean Platelet Volume 8.2 Neutrophils (%) (Auto) 64.9 Lymphocytes (%) (Auto) 20.6 Monocytes (%) (Auto) 8.8 Eosinophils (%) (Auto) 5.0 Basophils (%) (Auto) 0.7 Neutrophils # (Auto) 4.6 Lymphocytes # (Auto) 1.4 Monocytes # (Auto) 0.6 Eosinophils # (Auto) 0.4 Basophils # (Auto) 0.0 CBC Comment DIFF FINAL Differential Comment Sodium Level 142 Potassium Level 3.9 Chloride Level 105 Carbon Dioxide Level 30.9 Anion Gap 6 Blood Urea Nitrogen 18 Creatinine 1.21 Estimat Glomerular Filtration 43 Rate Random Glucose 103 Calcium Level 9.5 Magnesium Level 2.3 Imaging Last Impressions Chest X-Ray 02/25/17256 Signed Impressions: Service Date/Time: Saturday, February 25, 2017 03:12 - CONCLUSION: 1. No acute cardiopulmonary disease. Germain Zelaya MD Abdomen/Pelvis CT 02/25/17256 Signed Impressions: Service Date/Time: Saturday, February 25, 2017 03:06 - CONCLUSION: 1. 2 cm solid left renal mass. Malignancy is not excluded. MRI with contrast is recommended for further evaluation if clinically indicated. 2. Diverticulosis without evidence of diverticulitis. Germain Zelaya MD Physical Exam HEENT: EOMI; normocephalic; atraumatic; no jaundice. CHEST: Chest is clear to auscultation and percussion. CARDIAC: Regular rate and rhythm with no murmur gallop or rubs. ABDOMEN: Soft, nondistended, nontender; no hepatosplenomegaly; bowel sounds are present in all four quadrants. EXTREMITIES: No clubbing, cyanosis, or edema. SKIN: Normal; no rash; no jaundice. TELEPHONE SURVEYOR: No focal deficits; alert and oriented times three. (Janna Quiroz [facility]) Assessment and Plan Plan ASSESSMENT: - Rectal bleeding/BRBPR. Ischemic Colitis. s/p colonoscopy & EGD 02-26-17 ---> short segment wong's distal esophagus, erythematous gastritis, moderate diverticulosis, circumferential colitis sigmoid, mucosa erythematous and had granularity. Path: chempical gastropathy with single focus intestinal metapalsia but no dysplasia; mild acute inflammation crypt epithelium, hyalijnization of stroma and superficial mucosal erosions suggestive early ischemic changes. Hx: Started having nausea/vomiting, followed by straining to move her bowels. She later started having moderate amount of BRBPR, about 3-4 episodes with the last episode around 2am. Diverticulosis noted on CT scan. - Nausea, Vomiting. Remote hx of PUD. PPI. Started after eating out at a [employer]. - Abdominal pain. Abdomen/Pelvis CT (02/25/17)----> 1. 2 cm solid left renal mass. Malignancy is not excluded. MRI with contrast is recommended for further evaluation if clinically indicated. 2. Diverticulosis without evidence of diverticulitis. - GERD. PPI - Abnormal imaging with kidney PLAN: - DARLYN - Protonix - will need colonoscopy in 6 months - f/u with GI as outpt - okay to d/c from GI standpoint - PT seen and examined by Dr. Villaseñor and myself and this note is written on his behalf (Janna Quiroz) Physician Comments Seen and examined with RIKY, doing better. No bleeding. Ischemic colitis but CT normal. Complete 1 week of antibiotics. Gi fu upon dc. Thank you (Bharathi Villaseñor MD) Janna Quiroz February 28, 2017 11:08 Bharathi Villaseñor MD February 28, 2017 15:12
[2017-02-28] MEDS ORDERED: METO25TA3 PO (12:41)
[2017-02-28] MEDS ORDERED: PROP150T PO (12:41)
--- NOTE | 2017-02-28 12:48 | HHI.DS ---
Discharge Summary Admission Date February 25, 2017 at 05:23 Discharge Date: February 28, 2017 Admitting Diagnosis GI Bleed (1) Abdominal pain ICD Code: R10.9 (2) Bright red blood per rectum ICD Code: K62.5 Diagnosis: Principal (3) Vomiting ICD Code: R11.10 Diagnosis: Principal Procedures EGD and Colonoscopy Brief History - From Admission History from patient, her at the bedside, your physician communication, and review of medical records. Patient reported that she started having abdominal cramping pains and nausea and vomiting starting around 3 PM yesterday. She stated that she vomited about 5 times. Reports her vomitus was yellow in color. Associated with diffuse abdominal cramping. Then starting around 6 PM or so, she was also having bowel movements about 5 times. She stated initially the bowel movement was hard because she was constipated. Then it became diarrhea and by the end, it was bright red blood. She reports of history of external hemorrhoids. She reports that the above episodes of bleeding is associated with severe dizziness and weakness. However denies syncope or falls. Denies chest pains or shortness of breath. Patient denies being on blood thinners. She takes medications for acid reflux though. She initially denies taking NSAIDs. She reports she takes Osteo Bi-Flex. Her med reconciliation does include celecoxib Patient also reports a prior history of GI ulcers. She reports her last EGD and colonoscopy was more than 5 years ago. She cannot remember the name of the doctor. Apart from the above, patient denies any recent fevers/urinary burning or pain on urination. denies any black color stools or coffee-ground like vomiting. Denies any other constitutional symptoms. CBC/BMP: 02/28/17 0600 02/28/17 0600 Significant Findings Laboratory Tests Test 02/26/17 02/28/17 04:27 06:00 White Blood Count 11.2 TH/MM3 (4.0-11.0) Neutrophils (%) (Auto) 76.3 % (16.0-70.0) Monocytes (%) (Auto) 8.1 % (0.0-8.0) 8.8 % (0.0-8.0) Neutrophils # (Auto) 8.6 TH/MM3 (1.8-7.7) Creatinine 1.08 MG/DL 1.21 MG/DL (0.50-1.00) (0.50-1.00) Estimat Glomerular Filtration 49 ML/MIN (>89) 43 ML/MIN (>89) Rate Eosinophils (%) (Auto) 5.0 % (0.0-4.0) Imaging Last Impressions Chest X-Ray 02/25/17256 Signed Impressions: Service Date/Time: Saturday, February 25, 2017 03:12 - CONCLUSION: 1. No acute cardiopulmonary disease. Germain Zelaya MD Abdomen/Pelvis CT 02/25/17256 Signed Impressions: Service Date/Time: Saturday, February 25, 2017 03:06 - CONCLUSION: 1. 2 cm solid left renal mass. Malignancy is not excluded. MRI with contrast is recommended for further evaluation if clinically indicated. 2. Diverticulosis without evidence of diverticulitis. Germain Zelaya MD PE at Discharge GENERAL: This is a well-nourished, well-developed patient, in no apparent distress. But looks to be weak, in pain from abdomen. SKIN: No rashes, ecchymoses or lesions. Cool and dry. HEAD: Atraumatic. Normocephalic. No temporal or scalp tenderness. EYES: No scleral icterus. No injection or drainage. ENT: Nose without bleeding, purulent drainage or septal hematoma. Airway patent. NECK: Trachea midline. No JVD. Supple, nontender, no meningeal signs. CARDIOVASCULAR: Regular rate and rhythm without murmurs, gallops, or rubs. RESPIRATORY: Clear to auscultation. Breath sounds equal bilaterally. No wheezes , rales, or rhonchi. ABDOMEN: soft, non tender, no rebound MUSCULOSKELETAL: Extremities without clubbing, cyanosis, or edema. No calf tenderness. NEUROLOGICAL: Awake and alert. Motor and sensory grossly within normal limits.Normal speech. 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 also had Colonoscopy found Diverticulosis and no Diverticulitis, Circumferential Colitis was found in the Sigmoid Colon internal hemorrhoids. the patient developed Atrial Fibrillation given Cardizem and Amiodarone by Anesthesiology I started her on Metoprolol and I see pals specialist was consulted by Doctor Villaseñor. 02/27: Seen in her Bedroom in the presence of her , no new issues eating and drinking without difficulty. 02/28: Patient seen in her bedroom, not recommended by Cardiology to continue anticoagulation due to recent GI bleed, but will go on Metoprolol and Propafenone, stable in her bedroom, no nausea, vomit or diarrhea, okay to discharge home by GI specialist. Assessment and Plan 1. Lower GI bleed, Intractable Nausea and vomit Improved, Leukocytosis, MRI with incidental finding of solid renal mass will need follow up with Imaging studies in six months, Status post EGD found short segment of Rogers's Esophagus in distal esophagus erythematous gastritis in the gastric antrum, biopsy performed, recommended to continue PPIs. also had Colonoscopy found Diverticulosis and no Diverticulitis, Circumferential Colitis was found in the Sigmoid Colon internal hemorrhoids. continue PPIs at home and follow for biopsy result with GI specialist. 2. New onset of Atrial Fibrillation now on Sinus rhythm to continue Beta leonid and Propafenone, not recommended anticoagulation due to recent GI bleed. 3. Hypertension controlled. 4. Ischemic Colitis asked by Doctor Villaseñor not to start anticoagulation in the next two days to pals specialist. 5. Hyperlipidemia to continue Statins. DVT prophylaxiswith SCD. GI prophylaxison pantoprazole. Discussed Condition With Patient, Nurse Miss Vizcarra and her in the room Discharge Planning Discharge Home now Pt Condition on Discharge: Good Discharge Disposition: Discharge Home Discharge Time: > 30 minutes Discharge Instructions DIET: Follow Instructions for: Heart Healthy Diet Activities you can perform: Regular-No Restrictions Shai Moffett MD February 28, 2017 12:48
== END 2017-02-28 13:20 | disposition home or self-care (01) ==
LOC: NEPE 02:19 → NEDA 05:23 → NEDH 13:13 → NEPFCDU 16:33 → HCIS 02-26 12:41
PROVIDERS: ADMIT Internal Medicine; ATTEND Internal Medicine
DX: K55.9 Vascular disorder of intestine, unspecified (principal); K63.3 Ulcer of intestine; K57.30 Diverticulosis of large intestine without perforation or abscess without bleeding; K62.5 Hemorrhage of anus and rectum; K64.4 Residual hemorrhoidal skin tags; K22.70 Barrett's esophagus without dysplasia; K64.8 Other hemorrhoids; K29.70 Gastritis, unspecified, without bleeding; K21.9 Gastro-esophageal reflux disease without esophagitis; D72.829 Elevated white blood cell count, unspecified; I12.9 Hypertensive chronic kidney disease with stage 1 through stage 4 chronic kidney disease, or unspecified chronic kidney disease; N18.9 Chronic kidney disease, unspecified; E78.00 Pure hypercholesterolemia, unspecified; F32.9 Major depressive disorder, single episode, unspecified; E78.5 Hyperlipidemia, unspecified; M06.9 Rheumatoid arthritis, unspecified; I48.0 Paroxysmal atrial fibrillation; Z96.651 Presence of right artificial knee joint; Z87.11 Personal history of peptic ulcer disease; Z92.3 Personal history of irradiation; Z85.3 Personal history of malignant neoplasm of breast
CPT/HCPCS: 43239; 45380; 71010; 74176; 80048; 80053; 81001; 83605; 83735; 85014; 85018; 85025; 85610; 85730; 86140; 86850; 86900; 86901; 88305; 93005; 93306; 96374; 96375; 99285; C9113; G0378; J0282; J2270; J2405; J7040; 88312

== ENCOUNTER 2017-04-11 06:12 | Day surgery (SDC) | payer OTHER ==
[~2017-04-11] VITALS: Ht 157.5 cm; Wt 69.0 kg
[~2017-04-11 06:12] MED LIST changes: -AMLO10 PO; +AMLO10TA2 PO; -CELE200 PO; +LOSA50TA PO; +METO25TA3 PO; +PANT40TA3 PO; -PARO10S PO; +PARO40TA2 PO; +PROP150T PO; -PROT40TA PO; -RAMI10CA PO; +SIMV20TA PO; -TAB-TAB PO
[2017-04-11] MEDS ORDERED: NS 1000P @30 MLS/HR (KVO) IV SCH (06:45)
[2017-04-11] MEDS ORDERED: ASPIRIN 81 MG CHEW TAB PO ONE (06:45)
[2017-04-11] MEDS ORDERED: MULT-65 PO (06:54)
[2017-04-11] MEDS ORDERED: FIBEPOW (06:54)
[2017-04-11] MEDS ORDERED: ASPI81CH CHEW (06:54)
[2017-04-11] MEDS ORDERED: VITA10002 PO (06:54)
[2017-04-11] MEDS ORDERED: BIOTCAP PO (06:54)
[2017-04-11] MEDS ORDERED: CHOL5000 PO (06:54)
[2017-04-11 06:55] VITALS: BP 146/64; PULSE 54; RESP 16; TEMP 97.9; O2SAT 96
[2017-04-11 07:04] LABS: AUTOMATED NEUTROPHIL # 2.4 TH/MM3 (1.8-7.7); BASOPHIL # 0.1 TH/MM3 (0-0.2); BASOPHIL % 1.2 % (0.0-2.0); EOSINOPHIL # 0.6 TH/MM3 (0-0.4); HEMATOCRIT 40.3 % (35.0-46.0); HEMO FLAGS DIFF FINAL; LYMPH % 24.2 % (9.0-44.0); LYMPHOCYTE # 1.1 TH/MM3 (1.0-4.8); MEAN CORPUSCULAR HEMOGLOBIN 30.8 PG (27.0-34.0); MEAN CORPUSCULAR HGB CONC 34.6 % (32.0-36.0); MONO % 12.3 % (0.0-8.0); NEUT % 50.3 % (16.0-70.0); PLATELET COUNT 261 TH/MM3 (150-450); RED BLOOD COUNT 4.53 MIL/MM3 (4.00-5.30); WHITE BLOOD COUNT 4.8 TH/MM3 (4.0-11.0)
[2017-04-11 07:11] LABS: PROTHROMBIN TIME - PATIENT 10.9 SEC (9.8-11.6)
[2017-04-11 07:20] LABS: BICARBONATE 29.5 MEQ/L (21.0-32.0); POTASSIUM 3.9 MEQ/L (3.5-5.1)
[2017-04-11] MEDS ORDERED: HEPARIN-NS/PF INJ 500 ML ONE (08:19)
--- NOTE | 2017-04-11 08:51 | CATHPROC ---
[facility] HIS Report Study Information Study Number Admission Scheduled Start Study Start [id number] Apr 11 2017 6:12AM 04/11/2017 Apr 11 2017 8:09AM Study Type [place] Service Left Heart Cath Cardiac Catheterization Admit Source Facility Department Other [facility] - Manager Financial Services Physician and Clinical Staff Initial Elier Bowles Radio Mechanic Helper Tatianna Silvestre,RN Recorder Scarlet Calderón,RT(R) Scrub Jaspal Levine RCIS(BS) Procedures Performed Procedure Location (Site) Vessel Name Coronary Angiograms LCA Left Coronary Coronary Angiograms RCA Right Coronary L Heart Cath LV Gram-hand inj. LV LV Ventricle Wire insertion Fem Art (right) Femoral Art Equipment Time Forklift Wheel Loader Description Size Mfg Part Number Used/Scraped TRANSDUCER, TRUWAVE [id number] 08:20 HERRERA SILVESTRE * Used W/STOCKCOCK *[id number] [id number] *[id number] [id number] *[id number] *[id number] [id number] *[id number] 08:20 [employer] PACK, CCL CUSTOM * Used *[id number] 08:20 [employer] PACER PEN, SKIN DUAL W/ RULER * Used *[id number] 08:20 [employer] [place] MEDICAL WIRE, 3MMJ .035 180CM 180CM Used *[id number] 08:20 NAMIC MANIFOLD, 4 PORT * Used *[id number] 08:44 NYCOMED OMNIPAQUE, 300 MG, 150ML 150ML [id number] Used 08:20 NYCOMED OMNIPAQUE, 350 MG, 150ML 150ML [id number] Used [id number] 08:20 [employer]SHBY MEDICAL BLANKET,WARM AIR CCL * Used *[id number] 08:20 TERUMO MEDICAL SHEATH, FR4 TERUMO (10CM) FR 4 [id number] Used History: Allergies Allergy Reaction No Known Allergies History: Risk Factors Family History of Hypertension Dyslipidemia Previous AR Previous Heart Failure Premature CAD Yes Yes Yes No No Prior Valve Prior PCI Prior CABG Surgery No No No Cerebrovascular Peripheral Artery Chronic Lung On Dialysis Diabetes Disease Disease Disease No No Yes Yes No History: Stress Tests Stress or Imaging Studies Performed Yes Standard Exercise Stress Test No Stress Echo No Stress Test SPECT Stress Test SPECT Result Stress Test SPECT Ischemia Risk/Extent Yes Positive Intermediate Stress Test CMR No Cardiac CTA Coronary Calcium Score No No History: Other Disease Selection Items HTN History: Other Current Smoker No Labs Hgb (g/dl) Hct (%) WBC (l/cumm) Platelets (thousands) 12.00-18.00 37.00-55.00 4.80-10.80 140.00-450.00 13.9 40.3 4.8 261 Glucose (mg/dl) BUN (mg/dl) Creatinine (mg/dl) BUN:Creatinine (1:x) 60.00-110.00 8.00-20.00 0.10-9.00 10.00-20.00 104 21 1.4 15 Na (meq/l) K (meq/l) 138.00-146.00 3.80-5.10 142 3.9 INR (PTT:PT) 0.50-2.00 1 CPK-MB (ng/ML) 0.00-7.00 Not Drawn Medication Medication Total Dose (Bolus/Oral) Medication Total Dosage/Unit 1% XYLOCAINE 20 mL Medications (Bolus/Oral) Medication Time Given Dosage/Unit Administered By Reason 1% XYLOCAINE 04/11/2017 8:32:51 AM 20 mL Elier Carl 20 mL 1% XYLOCAINE given in lab by Elier Carl in Right Groin via Subcutaneous. Medication (Drip) Medication Time Given Dosage/Unit Concentration/Unit Diluent (ml) Solution IV Solutions 04/11/2017 8:20:05 AM 0 mL (IV) 500 NaCl .9 IV Solutions given in lab by Tatianna Silvestre, RN in Right Antecubital via Peripheral IV. Pump/Drip Flow = 20 ml/hr using NaCl .9. Initial Case Assessment Cardiovascular HR Rhythm NIBP Chest Pain 63 sr 153/72 0 Edema Present Skin color Skin None Normal Warm Circulatory - Right Pulses Dorsalis Pedis Femoral 3 2 Scale (0,1,2,3,4,d) Circulatory - Left Pulses Dorsalis Pedis Femoral 3 2 Scale (0,1,2,3,4,d) Circulatory - Lower Extremities Color Lower Right Color Lower Left Normal Normal Neurological State Oriented to time-place- Alert Moves all extremities person Respiration - General Respiration Rate SpO2 (%) (B/min) 20 96 Final Case Assessment Cardiovascular HR Rhythm NIBP 59 reg 127/59 Edema Present Skin color Skin None Normal Warm Circulatory - Right Pulses Dorsalis Pedis Femoral 3 2 Scale (0,1,2,3,4,d) Circulatory - Left Pulses Dorsalis Pedis Femoral 3 2 Scale (0,1,2,3,4,d) Circulatory - Lower Extremities Color Lower Right Color Lower Left Normal Normal Neurological State Oriented to time-place- Alert Moves all extremities person Respiration - General Respiration Rate SpO2 (%) (B/min) 26 93 Chronological Log Time Study Chronological Log 8:16:21 Patient arrived via Bed. 8:16:37 Patient Name, D.O.B, / Armband Verified By R.N. 8:18:42 Consent signed by the physician and the patient and verified by the Manager Financial Services staff. 8:18:43 Pre-op and post- op instructions given; patient acknowledges understanding of instructions. 8:18:45 Verbal Stimulation=2 Physical Stimulation=2 Airway=2 Respiration=2 TOTAL=8. (0=absent, 1=li mited, 2=present) 8:19:53 Presedation assessment performed by Manager Financial Services RN. 8:19:55 Patient has been NPO for More than 6Hrs. 8:19:57 Skin Breakdown- 8:19:58 Michelle Prominences Protected 8:20:02 A # 20 IV was noted in the Antecubital (right). Grade = 0 IV Solutions given in lab by Tatianna Silvestre, RN in Right Antecubital via Peripheral IV. Pump /Drip Flow = 20 ml/hr 8:20:05 using NaCl .9. 8:20:07 History and physical on the chart or being dictated. Assessment: Initial Case, HR=63 BPM, Rhythm=sr, EHPB=155/72 mmhg, Chest Pain=0, Edema=None, [place] r=Normal, Skin = Warm Right Pulses: Mario Ped=3, Femoral=2 Left Pulses: Mario Ped=3, Femoral=2 8:20:08 Lower Right Extremities: Color=Normal Lower Left Extremities: Color=Normal Neurological: State=Alert, Ox3, KATE Respiration: Resp=20 B/min, SpO2=96 % Vitals capture started with the following parameters, Patient=Adult, Interval=5 min, Initial Pre gpjek=605 mmHg, 8:20:21 Deflation Rate=5 mmHg 8:21:01 Reference ECG taken 8:21:37 HR=63 bpm, GFAL=310/72 mmhg, SpO2=97.0 %, Resp=15 B/min, Pain=0, Dmitry=10, Mcbride=2 8:23:30 Bilateral groins prepped with 2% chlorhexidine, and with a 3 min. waiting time. 8:23:42 MD paged 8:26:05 HR=61 bpm, NQTT=062/64 mmhg, SpO2=94.0 %, Resp=22 B/min, Pain=0, Dmitry=10, Mcbride=2 8:26:24 Pressure channel 1 zeroed. 8:30:26 MD arrived. 8:31:04 HR=59 bpm, TOMA=005/63 mmhg, SpO2=94.0 %, Resp=19 B/min, Pain=0, Dmitry=10, Mcbride=2 Time Out. Correct patient, correct procedure,correct physician, ,power injector not loaded with contrast with surgical 8:32:37 team present. Time Out Concurred by MD, individual staff and UPSETTER SETTER UP in procedure 8:32:48 Case Start 8:32:50 Verbal Stimulation=2 Physical Stimulation=2 Airway=2 Respiration=2 TOTAL=8. (0=absent, 1=ellis ited, 2=present) 8:32:51 20 mL 1% XYLOCAINE given in lab by Elier Carl in Right Groin via Subcutaneous. 8:34:20 Access site was Right Femoral Artery. 8:34:26 A wire was inserted via Fem Art (right). 8:34:28 A SHEATH, FR4 TERUMO (10CM) FR 4 was advanced into the Fem Art (right) using the Percutaneou s technique. A JR 4.0 INFINITI CATHETER FR 4 was advanced over a wire. OMNIPAQUE, 350 MG, 150ML 150ML was use d for 8:34:54 injections. Recorded Pressure: LV, HR=60, Condition=Condition 1 8:36:02 (Left Ventricle) LV 142/2/12 Recorded Pressure: LV, Ao, HR=60, Condition=Condition 1 8:36:22 (Left Ventricle) LV 139/6/14, (Aorta) Ao 136/39/81 8:36:30 The LV was manually injected with 8 cc's and visualized. OMNIPAQUE, 350 MG, 150ML 150ML used . 8:36:40 HR=61 bpm, JENK=113/62 mmhg, SpO2=94.0 %, Resp=22 B/min 8:36:42 The RCA was injected and visualized at various angles. OMNIPAQUE, 350 MG, 150ML 150ML used. 8:37:25 Catheter was removed A JL 4.0 INFINITI CATHETER FR 4 was advanced over a wire. OMNIPAQUE, 350 MG, 150ML 150ML was use d for 8:38:02 injections. 8:38:35 The LCA was injected and visualized at various angles. OMNIPAQUE, 350 MG, 150ML 150ML used. Recorded Pressure: Ao, HR=61, Condition=Condition 1 8:38:55 (Aorta) Ao 124/44/76 8:39:31 Catheter was removed 8:41:02 HR=62 bpm, FTGH=689/59 mmhg, SpO2=93.0 %, Resp=17 B/min, Dmitry=10 8:42:05 Sheath removed; pressure applied to access site. Assessment: Final Case, HR=59 BPM, Rhythm=reg, FHAB=758/59 mmhg, Edema=None, Color=Normal, Ski n = Warm Right Pulses: Mario Ped=3, Femoral=2 Left Pulses: Mario Ped=3, Femoral=2 8:42:08 Lower Right Extremities: Color=Normal Lower Left Extremities: Color=Normal Neurological: State=Alert, Ox3, KATE Respiration: Resp=26 B/min, SpO2=93 % 8:42:20 Case End 8:43:12 Sterile dressing applied to site 8:43:13 No case complications noted. 8:43:14 Cine recording checked. 8:43:16 Bedside Report will be given. 8:43:18 Contrast Scanned 8:43:38 Verbal Stimulation=2 Physical Stimulation=2 Airway=2 Respiration=2 TOTAL=8. (0=absent, 1=l imited, 2=present) 8:43:49 A Left Heart Cath was performed. 8:43:49 [facility] Clinical correlaton risk stratification. 8:46:42 HR=61 bpm, SHNJ=222/64 mmhg, SpO2=96.0 %, Resp=12 B/min, Pain=0, Dmitry=10, Mcbride=2 8:51:02 HR=59 bpm, VUZY=870/64 mmhg, SpO2=92.0 %, Resp=21 B/min, Pain=0, Dmitry=10, Mcbride=2 End Study - Contrast Media Used In Study Contrast Total Opened (mL) Total Used (mL) Total Wasted (mL) Omnipaque 40 40 0 End Study - Maximum Contrast Load Max Contrast Load (mL) 246.4 End Study - Radiation Exposure Fluoro Time (minutes) 0.7 End Study - Sheaths Sheaths Pulled By Sheath Hold Time (min) Jaspal Levine End Study - Patient Disposition Complications Transferred To No Outpatient Bed
[2017-04-11] MEDS ORDERED: SODIUM CHLORIDE 0.9% FLUSH 10 ML FLUSH PRN (09:00)
[2017-04-11] MEDS ORDERED: MISC INFORMATION XX ONE (09:00)
[2017-04-11] MEDS ORDERED: IOHEXOL 350 MG/ML 100 ML BTL (for Cath Lab) OTHER ONE (09:14)
[2017-04-11] MEDS ORDERED: SODIUM CHLORIDE 0.9% FLUSH 10 ML FLUSH SCH (10:00)
[2017-04-11] MEDS ORDERED: BACITRACIN OINT 0.9 GM PKT TOP ONE (10:00)
--- NOTE | 2017-04-11 22:24 | EKG ---
Date Performed: 04/11/2017 Time Performed: 06:59:10 PTAGE: 76 years EKG: Sinus bradycardia. Left bundle branch block Abnormal ECG PREVIOUS TRACING : 02/26/2017 09.49 DOCTOR: Israel Saeed Interpretating Date/Time 04/11/2017 22:22:49
--- NOTE | 2017-04-13 09:01 | MA ---
cc: ELIER GUERRERO M.D. DATE: 04/11/2017 PROCEDURE PERFORMED: 1. Left heart catheterization. 2. Coronary angiography. 3. Left ventriculography. INDICATION: Moderate size reversible defect in the anterior apical wall. Moderate risk nuclear stress test. PROCEDURE: The patient was brought to the Cardiac Catheterization Laboratory, prepped and draped in the usual sterile fashion. 10 cc of 1% lidocaine was used to locally anesthetize the right common femoral artery. A 4 Armenian sheath was successfully placed in the right common femoral artery. 4 Armenian JR4 and JL4 catheters were used to perform left and right coronary angiography and left ventriculography. FINDINGS: LV pressure is 140/7/8, ejection fraction 55%. The right coronary artery is dominant and has no significant obstructive disease. The left main coronary artery has no significant disease angiographically. The left circumflex vessel has no significant disease angiographically. The first obtuse marginal vessel is a small vessel, probably 1.5 millimeters in diameter, with no significant disease angiographically. The second obtuse marginal vessel is a medium to large vessel approaching the apex. No significant obstructive disease. The remainder of the AV groove left circumflex vessel has no significant disease angiographically. It supplies a small distal posterolateral artery which has no significant obstructive disease. The LAD has mild disease in the proximal segment up to 20% angiographically. The first diagonal artery is a small to medium size vessel with no significant obstructive disease. CONCLUSION 1. Angiographically mild one-vessel coronary artery disease in the right dominant system as detailed above. 2. LV systolic function ejection fraction 55%. 3. Recommend medical management of coronary artery disease. 4. Cardiac risk factor modification. Elier Guerrero MD [facility] /8:49 AM /7:23 AM
== END 2017-04-11 11:20 | disposition home or self-care (01) ==
LOC: HCAT 06:12 → HDIC 06:13 → HCAT 11:20
PROVIDERS: ATTEND Internal Medicine Interventional Cardiology
DX: I25.10 Atherosclerotic heart disease of native coronary artery without angina pectoris (principal)
CPT/HCPCS: 80048; 85025; 85610; 93005; 93458; C1769; C1893; J1644; Q9967

== ENCOUNTER 2018-03-04 14:54 | Emergency (ER) | payer OTHER | END 2018-03-04 17:19 | disposition home or self-care (01) | LOC: PHED 14:54 | DX: S00.03XA Contusion of scalp, initial encounter (principal); S20.211A Contusion of right front wall of thorax, initial encounter; S81.811A Laceration without foreign body, right lower leg, initial encounter; M50.321 Other cervical disc degeneration at C4-C5 level; M50.323 Other cervical disc degeneration at C6-C7 level; I10 Essential (primary) hypertension; K44.9 Diaphragmatic hernia without obstruction or gangrene; E78.00 Pure hypercholesterolemia, unspecified; W01.0XXA Fall on same level from slipping, tripping and stumbling without subsequent striking against object, initial encounter | CPT/HCPCS: 70450; 71250; 72125; 74176; 99284 ==

== ENCOUNTER 2018-03-11 12:44 | Emergency (ER) | payer OTHER ==
[~2018-03-11] VITALS: Ht 160 cm; Wt 70.0 kg
[~2018-03-11 12:44] MED LIST changes: +ASPI-516 CHEW; +BIOTCAP PO; +CHOL5000 PO; +FIBEPOW; +MULT-65 PO; +TRAM50TA PO; +VITA10002 PO
[2018-03-11 12:58] VITALS: BP 142/87; PULSE 55; RESP 16; TEMP 98.6; O2SAT 98
[2018-03-11] MEDS ORDERED: MECL-62 PO (13:34)
--- NOTE | 2018-03-11 13:42 | PD ---
HPI Chief Complaint: Headache Time Seen by Provider: 13:20 Travel History International Travel<30 days: No Contact w/Intl Traveler<30days: No Traveled to known affect area: No History of Present Illness HPI 77-year-old female complains of headache. She fell approximately 9 days ago. She was seen here 3 days after she fell and cross sectional imaging of the head head revealed no acute injury. The patient describes the headache has persisted since the CT. She also describes dizziness sometimes as if things are moving one zamzam and the other in her words and other times as if the room is moving. She vomited at home. She saw Dr. Franz her primary doctor who prescribed vertigo. She does not take a blood thinner. PFSH Past Medical History Arthritis: Yes Asthma: No Depression: Yes Heart Rhythm Problems: No Cancer: Yes (BREAST) Cardiovascular Problems: Yes High Cholesterol: Yes Chest Pain: No Congestive Heart Failure: No COPD: No Cerebrovascular Accident: No Diabetes: No Diminished Hearing: No Gastrointestinal Disorders: Yes GERD: Yes Glaucoma: No Genitourinary: Yes Headaches: No Hepatitis: No Hiatal Hernia: Yes Hypertension: Yes Kidney Stones: No Musculoskeletal: Yes (PARTIAL KNEE REPLACE 07/2009) Neurologic: No Reproductive: No Respiratory: Yes Migraines: No Myocardial Infarction: No Radiation Therapy: Yes (1998, 2000) Renal Failure: No Seizures: No Sleep Apnea: No Thyroid Disease: No Ulcer: No Influenza Vaccination: Yes ?: Not Menopausal: Yes Past Surgical History Abdominal Surgery: No Appendectomy: No Cardiac Surgery: No Cholecystectomy: Yes Ear Surgery: No Endocrine Surgery: No Eye Surgery: No Genitourinary Surgery: No Gynecologic Surgery: Yes Hysterectomy: Yes (partial) Oral Surgery: No Pacemaker: No Thoracic Surgery: No Other Surgery: Yes (breast lumpectomy x3) Social History Alcohol Use: No Tobacco Use: No Substance Use: No Allergies-Medications (Allergen,Severity, Reaction): Coded Allergies: No Known Allergies (Verified Adverse Reaction, Unknown, 03/11/18) Reported Meds & Prescriptions Reported Meds & Active Scripts Active Tramadol (Tramadol HCl) 50 Mg Tab 50 Mg PO Q8H PRN Propafenone (Propafenone HCl) 150 Mg Tab 150 Mg PO TID Metoprolol Tartrate 25 Mg Tab 25 Mg PO Q12HR Reported Meclizine (Meclizine HCl) 25 Mg Tab 25 Mg PO TID PRN Fiber 1 Pow Pow Biotin 5 Mg Cap 5 Mg PO Vitamin B-12 (Cyanocobalamin) 1,000 Mcg Tab 1,000 Mcg PO DAILY Vitamin D3 (Cholecalciferol) 5,000 Unit Cap 5,000 Units PO DAILY Multi-Vitamin Daily (Multiple Vitamin) 1 Tab Tab 1 Tab PO DAILY Aspirin 81 Mg Chew 81 Mg CHEW DAILY Simvastatin 20 Mg Tab 20 Mg PO DAILY Losartan (Losartan Potassium) 50 Mg Tab 50 Mg PO BID Pantoprazole (Pantoprazole Sodium) 40 Mg Tab 40 Mg PO BID Paroxetine (Paroxetine HCl) 40 Mg Tab 40 Mg PO DAILY Amlodipine (Amlodipine Besylate) 10 Mg Tab 10 Mg PO DAILY Review of Systems Except as stated in HPI: all other systems reviewed are Neg General / Constitutional: No: Fever Physical Exam Narrative GENERAL: 77-year-old female pleasant well-nourished well-developed Vital Signs Date Time Temp Pulse Resp B/P (MAP) Pulse Ox O2 Delivery O2 Flow Rate FiO2 03/11/18 12:58 98.6 55 16 142/87 (105) 98 SKIN: Warm and dry. HEAD: Atraumatic. Normocephalic. There is extensive ecchymosis overlying the right scalp face in the region of the right neck and shoulder. EYES: Pupils equal and round. No scleral icterus. No injection or drainage. No nystagmus. ENT: No nasal bleeding or discharge. Mucous membranes pink and moist. NECK: Trachea midline. No JVD. CARDIOVASCULAR: Regular rate and rhythm. RESPIRATORY: No accessory muscle use. Clear to auscultation. Breath sounds equal bilaterally. GASTROINTESTINAL: Abdomen soft, non-tender, nondistended. Hepatic and splenic margins not palpable. MUSCULOSKELETAL: Extremities without clubbing, cyanosis, or edema. No obvious deformities. NEUROLOGICAL: Awake and alert. No obvious cranial nerve deficits. Motor grossly within normal limits. Five out of 5 muscle strength in the arms and legs. Normal speech. PSYCHIATRIC: Appropriate mood and affect; insight and judgment normal. Data Data Last Documented VS Vital Signs Date Time Temp Pulse Resp B/P (MAP) Pulse Ox O2 Delivery O2 Flow Rate FiO2 03/11/18 14:27 56 18 151/79 (103) 95 Room Air 03/11/18 12:[address] Brain W/O Iv Contrast(Rout) (03/11/18 13:20) Electrocardiogram (03/11/18 13:39) Basic Metabolic Panel (Bmp) (03/11/18 13:39) Complete Blood Count With Diff (03/11/18 13:39) Urinalysis - C+S If Indicated (03/11/18 13:39) Ecg Monitoring (03/11/18 13:39) Iv Access Insert/Monitor (03/11/18 13:39) Oximetry (03/11/18 13:39) Sodium Chloride 0.9% Flush (Ns Flush) (03/11/18 13:45) Acetaminophen (Tylenol) (03/11/18 13:45) Ed Discharge Order (03/11/18 15:02) Ciprofloxacin (Cipro) (03/11/18 15:15) Labs Laboratory Tests Test 03/11/18 14:00 03/11/18 14:10 White Blood Count 5.7 TH/MM3 Red Blood Count 4.23 MIL/MM3 Hemoglobin 12.4 GM/DL Hematocrit 38.4 % Mean Corpuscular Volume 90.7 FL Mean Corpuscular Hemoglobin 29.2 PG Mean Corpuscular Hemoglobin Concent 32.2 % Red Cell Distribution Width 12.4 % Platelet Count 336 TH/MM3 Mean Platelet Volume 7.7 FL Neutrophils (%) (Auto) 54.7 % Lymphocytes (%) (Auto) 26.1 % Monocytes (%) (Auto) 10.5 % Eosinophils (%) (Auto) 6.1 % Basophils (%) (Auto) 2.6 % Neutrophils # (Auto) 3.2 TH/MM3 Lymphocytes # (Auto) 1.5 TH/MM3 Monocytes # (Auto) 0.6 TH/MM3 Eosinophils # (Auto) 0.3 TH/MM3 Basophils # (Auto) 0.1 TH/MM3 CBC Comment DIFF FINAL Differential Comment Blood Urea Nitrogen 21 MG/DL Creatinine 1.20 MG/DL Random Glucose 102 MG/DL Calcium Level 9.9 MG/DL Sodium Level 141 MEQ/L Potassium Level 4.1 MEQ/L Chloride Level 106 MEQ/L Carbon Dioxide Level 31.3 MEQ/L Anion Gap 4 MEQ/L Estimat Glomerular Filtration Rate 43 ML/MIN Urine Color YELLOW Urine Turbidity CLEAR Urine pH 5.5 Urine Specific [place] 1.020 Urine Protein NEG mg/dL Urine Glucose (UA) NEG mg/dL Urine Ketones NEG mg/dL Urine Occult Blood NEG Urine Nitrite NEG Urine Bilirubin NEG Urine Urobilinogen 0.2 MG/DL Urine Leukocyte Esterase SMALL Urine WBC 6-8 /hpf Urine Transitional Epithelial Cells 0-5 /hpf Microscopic Urinalysis Comment CULT NOT INDICATED MDM Medical Decision Making Medical Screen Exam Complete: Yes Emergency Medical Condition: Yes Medical Record Reviewed: Yes Differential Diagnosis Intracranial hemorrhage, electrolyte imbalance, arrhythmia, dehydration, anemia Narrative Course CBC & BMP Diagram 03/11/18 14:00 Calcium Level 9.[address] 03/11/18 1320 Signed Impressions: Service Date/Time: Friday, March 11, 2018 13:45 - CONCLUSION: 1. No acute intracranial abnormality identified. 2. Small hematoma within the scalp on the right side. Kris Dominique MD Imaging is unremarkable. Etiology of the dizziness is not readily apparent based on today's blood work. We do see white blood cells leukocyte esterase and the urinalysis which raises concern for UTI and in the relative absence of other attributable disease processes UTI is not unreasonable. The patient will go home with the Cipro prescription. Diagnosis Primary Impression: Dizziness Additional Impressions: Cephalgia Qualified Codes: R51 - Headache Pyuria Referrals: Primary Care Physician call for appointment Med/Other Pt SpecificInfo: Prescription(s) given Disposition: DISCHARGE HOME Condition: Stable Kris Horan MD March 11, 2018 13:42
[2018-03-11] MEDS ORDERED: SODIUM CHLORIDE 0.9% FLUSH 10 ML FLUSH IVF PRN (13:45)
[2018-03-11] MEDS ORDERED: ACETAMINOPHEN 325 MG TAB PO ONE (13:45)
--- NOTE | 2018-03-11 14:01 | RADRPT ---
EXAM DATE/TIME: 03/11/2018 13:45 [facility] COMPARISON: CT ABDOMEN & PELVIS W/O CONTRAST, March 04, 2018, 15:27. INDICATIONS : Trauma. Fell 2 weeks ago. Dizziness. Cephalgia. Bruising around neck and right eye. Bruising and swelling right forehead. RADIATION DOSE: 56.83 CTDIvol (mGy) MEDICAL HISTORY : Carcinoma, breast. Gastroesophageal reflux disease. Cardiovascular diseaseHiatal hernia. SURGICAL HISTORY : Cholecystectomy. Hysterectomy.Breast lumpectomy. ENCOUNTER: [facility] ACUITY: 2 weeks PAIN SCALE: 5/10 LOCATION: cranial TECHNIQUE: Multiple contiguous axial images were obtained of the head. Using automated exposure control and adj ustment of the mA and/or kV according to patient size, radiation dose was kept as low as reasonably a chievable to obtain optimal diagnostic quality images. DICOM format image data is available electro nically for review and comparison. FINDINGS: CEREBRUM: The ventricles are normal for age. No evidence of midline shift, mass lesion, hemorrhage or acute in farction. No extra-axial fluid collections are seen. POSTERIOR FOSSA: The cerebellum and brainstem are intact. The 4th ventricle is midline. The cerebellopontine angle i s unremarkable. EXTRACRANIAL: The visualized portion of the orbits is intact. The exam does demonstrate a small hematoma within the scalp along the right frontal region SKULL: The calvaria is intact. No evidence of skull fracture. CONCLUSION: 1. No acute intracranial abnormality identified. 2. Small hematoma within the scalp on the right side. Kris Dominique MD on March 11, 2018 at 13:56 Board Certified Radiologist. This report was verified electronically.
[2018-03-11 14:18] LABS: BILIRUBIN, URINE NEG (NEG); BLOOD, URINE NEG (NEG); GLUCOSE,URINE NEG (NEG); KETONE, URINE NEG (NEG); NITRITE,URINE NEG (NEG); PH, URINE 5.5 (5.0-8.5); URINE COLOR YELLOW (YELLW/STRAW); URINE LEUKOCYTE ESTERASE SMALL (NEG)
[2018-03-11 14:19] LABS: AUTOMATED NEUTROPHIL # 3.2 TH/MM3 (1.8-7.7); BASOPHIL # 0.1 TH/MM3 (0-0.2); BASOPHIL % 2.6 % (0.0-2.0); EOSINOPHIL # 0.3 TH/MM3 (0-0.4); EOSINOPHIL % 6.1 % (0.0-4.0); HEMATOCRIT 38.4 % (35.0-46.0); HEMOGLOBIN 12.4 GM/DL (11.6-15.3); LYMPH % 26.1 % (9.0-44.0); LYMPHOCYTE # 1.5 TH/MM3 (1.0-4.8); MEAN CELL VOLUME 90.7 FL (80.0-100.0); MEAN CORPUSCULAR HEMOGLOBIN 29.2 PG (27.0-34.0); MEAN CORPUSCULAR HGB CONC 32.2 % (32.0-36.0); MEAN PLATELET VOLUME 7.7 FL (7.0-11.0); MONO % 10.5 % (0.0-8.0); MONOCYTE # 0.6 TH/MM3 (0-0.9); NEUT % 54.7 % (16.0-70.0); PLATELET COUNT 336 TH/MM3 (150-450); RED BLOOD COUNT 4.23 MIL/MM3 (4.00-5.30); RED CELL DISTRIBUTION WIDTH 12.4 % (11.6-17.2); WHITE BLOOD COUNT 5.7 TH/MM3 (4.0-11.0)
[2018-03-11 14:27] VITALS: BP 151/79; PULSE 56; RESP 18; O2SAT 95
[2018-03-11 14:28] LABS: TRANSITIONAL EPI CELLS, URINE 0-5 /hpf
[2018-03-11 14:30] VITALS: BP 138/64; PULSE 56; RESP 16; O2SAT 96
[2018-03-11 14:40] LABS: CALCIUM 9.9 MG/DL (8.5-10.1)
[2018-03-11 14:41] LABS: BICARBONATE 31.3 MEQ/L (21.0-32.0)
[2018-03-11 14:44] LABS: CREATININE 1.2 MG/DL (0.50-1.00)
[2018-03-11] MEDS ORDERED: CIPROFLOXACIN 250 MG TAB PO ONE (15:15)
[2018-03-11] MEDS ORDERED: CIPR250T52 PO (15:22)
--- NOTE | 2018-03-13 12:05 | EKG ---
Date Performed: 03/11/2018 Time Performed: 15:00:57 PTAGE: 77 years EKG: SINUS BRADYCARDIA MODERATE INTRAVENTRICULAR CONDUCTION DELAY MODERATE VOLTAGE CRITERIA FOR LVH, CONSIDER NORMAL VARIANT BORDERLINE ECG PREVIOUS TRACING : 04/11/2017 06.59 DOCTOR: Israel Saeed Interpretating Date/Time 03/13/2018 11:54:52
== END 2018-03-11 15:37 | disposition home or self-care (01) ==
LOC: PHED 12:44
DX: S00.03XA Contusion of scalp, initial encounter (principal); R42 Dizziness and giddiness; R51 Headache; N39.0 Urinary tract infection, site not specified; M19.90 Unspecified osteoarthritis, unspecified site; E78.00 Pure hypercholesterolemia, unspecified; I10 Essential (primary) hypertension; R00.1 Bradycardia, unspecified; W19.XXXA Unspecified fall, initial encounter
CPT/HCPCS: 70450; 80048; 81001; 85025; 93005; 99285